=== PATIENT | female | born 1940 | race Caucasian/White ===

== ENCOUNTER 2023-11-11 17:35 | Inpatient (IN) | payer OTHER, SELFPAY ==
[2023-11-11] VITALS (40 sets, daily range): BP systolic 94–230; BP diastolic 55–121; BMI 18.4; BMI 19.5
--- NOTE | 2023-11-11 12:15 | EDRN ---
Addendum entered by Elle Loco RN 11/11/23 16:44:
Patient's stated that the patient had what he calls a 'cerebral event' in May 2022. stated that patient had a 'silent bleed'. stated that the patient has had some cognitive issues as a result. Per patient has memory
problems. stated that the patient has had weakness in her leg and got worse today. stated that they were going to a viewing and he dropped the patient off in front of the [facility]. said the patient had difficulty getting out of
the car and had to hold onto a bench because she could not walk.
Original Note:
Received patient via EMS. Patient unable to provide PMH. Per EMS patient was going into [facility] and was unable to walk and was having increased weakness in her left leg for the past 2 days. Patient denies any numbness/tingling,speech
difficulty,visual changes,dizziness and headache. Patient's at bedside.
[2023-11-11 12:50] LABS: % Basophils 0.5 % (0-2); % Eosinophils 0.6 % (0-6); % Immature Granulocytes 0.5 % (0-0.5); % Lymphocytes 13.8 % (20.5-51.1); % Monocytes 6.8 % (1.7-9.3); % Neutrophils 77.8 % (42.2-75.2); Absolute Basophils 0.1 10^3/uL (0-0.2); Absolute Eosinophils 0.1 10^3/uL (0-0.7); Absolute Immature Granulocytes 0.1 10^3/uL (0-0.05); Absolute Lymphocytes 1.4 10^3/uL (1.2-3.4); Absolute Monocytes 0.7 10^3/uL (0.1-0.6); Absolute Neutrophils 7.7 10^3/uL (1.4-6.5); Hematocrit 39.1 % (37.0-47.0); Hemoglobin 13.5 g/dL (12.0-16.0); Mean Corp Hgb Conc. 34.5 g/dL (33.0-37.0); Mean Corpuscular Hgb 30.8 pg (27.0-31.0); Mean Corpuscular Volume 89.1 fL (81.0-99.0); Mean Platelet Volume 9.7 fL (7.4-10.4); Nucleated Red Blood Cells % 0 %; Platelet Count 268 10^3/uL (130-400); Red Blood Cell Count 4.39 10^6/uL (4.20-5.40); Red Cell Dist. Width 12.3 % (11.5-14.5); White Blood Cell Count 9.9 10^3/uL (4.8-10.8)
[2023-11-11] MEDS: CARDENE 200 IV ×2 (12:56→20:41)
[2023-11-11 12:58] LABS: ALT (SGPT) 19 U/L (0-35); AST (SGOT) 37 U/L (14-36); Albumin 4.9 g/dl (3.5-5.0); Alkaline Phosphatase 82 U/L (38-126); Blood Urea Nitrogen 28 mg/dl (7-17); Calcium 9.8 mg/dl (8.4-10.2); Carbon Dioxide 26 mmol/L (22-30); Chloride 102 mmol/L (98-107); Estimated Creatinine Clearance 46 ml/min; Glucose 104 mg/dl (70-99); Sodium 138 mmol/L (135-145); Total Protein 7.8 g/dl (6.3-8.2); eGFR > 60.00
[2023-11-11 13:21] LABS: INR 1.03; PT 13.3 Sec (11.4-14.6)
--- NOTE | 2023-11-11 13:45 | ED.GENMED ---
History of Present Illness
General
Chief Complaint: Weakness
Source: patient, records and spouse
Exam Limitations: none
Time Seen by Provider: 11/11/23 12:18
Nursing documentation reviewed up to this point in time: agreed with
Travel History
Have you had any contact with someone who has COVID-19?: No
Do you have any symptoms of coronavirus? Fever > 100 degrees, chills, cough, shortness of breath, sore throat, loss of taste or smell, muscle aches, or headache?: No
History of Present Illness
History of Present Illness:
Patient is an 82-year-old female was brought to the emergency department by EMS after being interviewing with her today and was unable to stand due to weakness. Patient denies headaches. Patient denies any recent illnesses or injuries.
Patient denies any falls. Patient denies fever, chills, nausea, vomiting, chest pain, shortness of breath or palpitations. Patient does have some dementia according to her has had a cerebrovascular event in the past.
Past History
Past History
ED Past Medical History: HTN, Hypercholesterolemia and Hypothyroidism
Social History
Tobacco: Non-smoker
Personal:
Review of Systems
Review of Systems
All Other Systems: ROS reviewed and negative except as documented in HPI and ROS
Constitutional: Reports no symptoms
EENT: Reports no symptoms
Respiratory: Reports no symptoms
Cardiac: Reports no symptoms
ABD/GI: Reports no symptoms
: Reports no symptoms
Musculoskeletal: Reports no symptoms
Skin: Reports no symptoms
Neurological: Reports weakness; Denies headache
Hematologic/Lymphatic: Reports no symptoms
Phy Exam
Physical Exam
Physical Exam:
Physical Exam
General: No apparent distress, alert and appropriate, well nourished, well hydrated
HENT: Normocephalic, supple with no lymphadenopathy, no thyromegaly
Eyes: Clear sclera, conjuctiva without injection
Heart: Regular rhythm and rate. No S3, S4. No murmur. No NVD
Lungs: No respiratory distress, no stridor, lung sounds clear and equal bilaterallyender
Abdomen: Soft, nontender, BS good
Neuro: Alert and oriented to person place, CN II - XII intact, left-sided weakness, no cerebellar dysfunction
Skin: no rash
Psychiatric: well kept. interactive and cooperative
Extremities: No edema, cyanosis, tenderness
Scores
NIH Stroke Score
Level of Consciousness: 0 - Alert
LOC Questions: 0-Answers both correctly
LOC Commands: 0-Performs both correctly
Best Horizontal Gaze: 0-Normal
Visual Abraham: 0=Normal, no visual loss
Facial Palsy: 0=Normal, symmetrical
Motor - Right Arm: 0=No drift 10 seconds
Motor - Left Arm: 1=Drift < 10 seconds
Motor - Right Le-No drift 5 seconds
Motor - Left Le-Drift < 5 seconds
Limb Ataxia: 0-Absent
Sensation: 0-Normal
Best Language: 0-No aphasia
Dysarthria: 0-Normal
Extinction and Inattention: 0-No abnormality
Total Score:: 2
Thrombolytic Contraindication
Reasons for NON-Tx with Thrombolytics ABSOLUTE Exclusions: Evidence of intracranial hemorrhage on pre-treatment CT head
Course
Orders/Labs/Results
Orders:
Orders
11/11/23 11:37
EKG [Electrocardiogram (*1)] Urgent
Reason for Study: Fatigue / Weakness
EKG- Treatment ONCE
11/11/23 11:40
CT Head W/o Iv Contrast Urgent
Comment:
Reason For Exam: left leg weakness
11/11/23 12:33
Electrocardiogram (*1) Urgent
Reason for Study: Fatigue / Weakness
CMP [Comprehensive Metabolic Panel] Urgent
Complete Blood Count/With Diff Urgent
11/11/23 12:34
Nicardipine 40 mg/200 ml [Cardene] 40 mg in 200 ml IV NOW
Initial dose in mg/hr, then titrate:: 5
Titrate to keep:: SBP 120 - 140 mmHg
Titrate by mg/hr:: 2.5 mg/hr
Frequency of titrations (minutes):: 5-15 minutes
Maximum dose in mg/hr:: 15
Begin to taper infusion when:: Remained at goal for 2hrs
Taper by mg/hr:: 2.5 mg/hr
Frequency of taper (minutes) if patient maintains goal:: every 15-30 minutes
Taper to off?: Yes
If infusion off & no longer maintaining goal:: Contact Provider
11/11/23 13:03
PTT Urgent
Prothrombin Time Urgent
11/11/23 13:59
Neurosurgery Consult Routine
Consulting Provider: Anirudh Bean
Was physician already notified: Yes
Abnormal Lab Results
11/11/23
12:33
Abs Immat Gran (auto) 0.1 H 10^3/uL
(0-0.05)
Absolute Neuts (auto) 7.7 H 10^3/uL
(1.4-6.5)
Absolute Monos (auto) 0.7 H 10^3/uL
(0.1-0.6)
Neutrophils % 77.8 H %
(42.2-75.2)
Lymphocytes % 13.8 L %
(20.5-51.1)
BUN 28 H mg/dl
(7-17)
Glucose 104 H mg/dl
(70-99)
AST 37 H U/L
(14-36)
11/11/23 12:33
11/11/23 12:33
Vital Signs
Initial and Last Documented VS:
Initial Vital Signs
Temp Pulse Resp BP Pulse Ox
98.5 F 72 17 213/105 98
11/11/23 11:44 11/11/23 11:44 11/11/23 11:44 11/11/23 11:44 11/11/23 11:44
Last Documented Vital Signs
Temp Pulse Resp BP Pulse Ox
98.5 F 89 15 155/102 97
11/11/23 11:44 11/11/23 15:00 11/11/23 15:15 11/11/23 15:15 11/11/23 15:15
*Radiology
Radiology exam reviewed: radiology read reviewed (ICH in the right thalamus)
*Pulse Oximetry
Patient hypoxic: no
*EKG
Interpreted by ED Provider?: Yes
EKG Intrepretation Date: 11/11/23
EKG Intrepretation Time: 13:46
Interpretation: normal
Comparison EKG: no changes
Heart Rate: 77
Rate: normal
Rhythm: sinus
[place]: normal axis
Interval: normal interval
QRS Pattern: normal QRS
Ischemia: non-specific ST changes
*[employer] Interpretation
Rate: normal
Interpretation: normal
Heart Rate: 77
Rhythm: sinus
*Critical Care Note
Total Time (30-74mins, 75-104mins- exclusive of procedures): 45 minutes
Update Note
Update Note:
Discussed with neurosurgery will be admitted to the ICU here on the hospitalist service.
ED Attending Note
-
Portions of this chart may have been created with voice recognition software.� Occasional wrong word or��sound alike� substitutions may have occurred due to the inherent limitations of voice recognition software.
Discharge Plan
Departure
Patient Disposition: Admit
Date of Disposition: 11/11/23
Time of Disposition: 13:45
Admit to: ICU
Admit to doctor: Hospitalist
Presentation/result/management discussed w/ accepting MD/DO: Neurosurgery
Patient with high blood pressure during this ER visit?: Yes
Condition: Critical
Covid-19: Not Applicable
Discharge Problem:
Intracranial hemorrhage
Prescriptions:
No Action
atorvastatin [Lipitor] 20 mg Tablet
20 mg PO QPM
Theragen Tablet
1 tab PO DAILY
ascorbic acid (vitamin C) [Vitamin C] 500 mg Tablet
500 mg PO DAILY
levothyroxine [Synthroid] 50 mcg Tablet
50 mcg PO DAILY
lisinopril 2.5 mg Tablet
2.5 mg PO DAILY
coQ10 (ubiquinol) 100 mg Capsule
100 mg PO DAILY
Referrals:
Mahendra Gaffney PA-C [Family Provider] -
Interventions
Interventions:
*Risk Screen - Suicide Last Done: 11/11/23 11:44
*General Assessment Last Done: 11/11/23 11:44
*Neglect/Abuse Screening Last Done: 11/11/23 11:44
ED- Fall Risk Assessment Last Done: 11/11/23 11:53
*ED COVID-19 Vaccine History Last Done: 11/11/23 12:07
ED- Cardiac Assessment Last Done: 11/11/23 11:53
ED- Neurological Assessment Last Done: 11/11/23 11:53
ED- Pulmonary Assessment Last Done: 11/11/23 11:53
Discharge Date and Time
Print Language: [place]
--- NOTE | 2023-11-11 14:41 | CON.NS ---
Chief Complaint
-
ICH
History of Present Illness
This is an 82-year-old female presented today from [facility]. Her states that he was unable to get her out of the car once they arrived. He states that she was having some potential weakness prior to getting in the car however worsened. CT
head was completed for left-sided weakness upon presentation. This showed a left basal ganglionic hemorrhage with mild intraventricular hemorrhage. Currently she denies any headache. She is mildly confused. States she does have a history of
hypertension controlled with lisinopril. She denies any anticoagulants or antiplatelet use.
Review of Systems
-
10 point review of systems was completed is negative except stated in the HPI
Medication and Allergies
Home Medications
Home Medications
�Medication �Instructions �Recorded
ascorbic acid (vitamin C) 500 mg 500 mg PO DAILY 11/11/23
tablet (Vitamin C)
atorvastatin 20 mg tablet (Lipitor) 20 mg PO QPM 11/11/23
coQ10 (ubiquinol) 100 mg capsule 100 mg PO DAILY 11/11/23
levothyroxine 50 mcg tablet 50 mcg PO DAILY 11/11/23
(Synthroid)
lisinopril 2.5 mg tablet 2.5 mg PO DAILY 11/11/23
therapeutic multivitamin 1 tab PO DAILY 11/11/23
Allergies
Allergies
Allergy/AdvReac Type Severity Reaction Status Date / Time
No Known Allergies Allergy Verified 11/11/23 11:53
Physical Exam
-
Exam:
Awake alert and oriented x 2
Left sided weakness involving the upper and lower extremities with 2-3 out of 5 weakness
Left drift involving the arm and leg
Cranial nerves are grossly intact
No visible facial weakness
Sensory is grossly intact
CAT scan of the head shows 3 cm left thalamic/basal ganglionic hemorrhage. There is a mild amount of interventricular hemorrhage no hydrocephalus.
Problems
-
Problem Status Onset Code
Intracranial hemorrhage I62.9
Assessment / Plan
-
ICH:
1. Repeat CT in 6 hours
2. Goal SBP 100-1 40; continue Cardene
3. No anticoagulants
4. Head of bed 30 degrees
5. Every hour neurochecks
6. Notify neurosurgery of any neurologic changes
7. No acute surgical interventions needed
8. Consult neurology
--- NOTE | 2023-11-11 15:47 | HPS.HSE ---
Family Physician
-
Family Physician: Mahendra Gaffney PA-C
Chief Complaint
-
Stroke
History of Present Illness
82-year-old woman came to ED after she was unable to stand due to weakness. She denies headaches, any recent illnesses or injuries, or any falls. She denies fever, chills, nausea, vomiting, chest pain, shortness of breath or palpitations. Patient
does have some dementia according to her , and has had a cerebrovascular event in the past. Her head CT showed:
a 3 cm acute/subacute parenchymal hemorrhage centered at the anterior aspect of the right thalamus and extending into the internal capsule on the right.
There is associated intraventricular extension with hemorrhage extending into the third and right lateral ventricles.
Moderate cortical atrophy with moderate nonspecific white matter changes as detailed above.
She was evaluated by neurosurgery who recommended the following:
'1. Repeat CT in 6 hours
2. Goal SBP 100-140; continue Cardene
3. No anticoagulants
4. Head of bed 30 degrees
5. Every hour neurochecks
6. Notify neurosurgery of any neurologic changes
7. No acute surgical interventions needed
8. Consult neurology'
At the time of my interview, she was comfortable, mildly confused but not in distress. She did not have obvious focal neuro defects while lying in bed. Gait not tested.
Medical History
Past Medical History
Past Medical History: Reports Other
Additional Past Medical History:
essential HTN,
Hypercholesterolemia
Hypothyroidism
mild dementia
Personal history of colonic polyps
Impaired fasting glucose
Ambulatory dysfunction
Mixed hyperlipidemia
Meningioma
Primary osteoarthritis, unspecified elbow
Mild cognitive impairment
Small vessel disease, cerebrovascular
Past Surgical History: Reports None
Social History
Tobacco: Non-smoker
Alcohol: Daily
Drug: None
Personal:
Living: With Family
Family History
Family History: Not pertinent
Allergies / Home Medications
Allergies reflects when Allergies were last updated in [employer].
Home Medications with original date entered in [employer]
Allergy/Medication List:
Allergies
Allergy/AdvReac Type Severity Reaction Status Date / Time
No Known Allergies Allergy Verified 11/11/23 11:53
Home Medications
ascorbic acid (vitamin C) 500 mg tablet (Vitamin C) 500 mg PO DAILY 11/11/23
atorvastatin 20 mg tablet (Lipitor) 20 mg PO QPM 11/11/23
coQ10 (ubiquinol) 100 mg capsule 100 mg PO DAILY 11/11/23
levothyroxine 50 mcg tablet (Synthroid) 50 mcg PO DAILY 11/11/23
lisinopril 2.5 mg tablet 2.5 mg PO DAILY 11/11/23
therapeutic multivitamin 1 tab PO DAILY 11/11/23
Review of Systems
-
History Source: Patient
A 12 point ROS was completed and negative except as noted: Yes
Physical Exam
Vital Signs
Vital Signs
Temp Pulse Resp BP Pulse Ox
98.5 F 89 15 155/102 97
11/11/23 11:44 11/11/23 15:00 11/11/23 15:15 11/11/23 15:15 11/11/23 15:15
Physical Exam
General: Well Developed, Well Nourished, No Apparent Distress and Appears Chronically Ill
HEENT: NormoCephalic, Moist mucous membranes, No Ptosis, Nose Appears Normal and Ears Appear Normal
Respiratory: Clear
Cardiac: S1/S2 and Murmur
GI: Soft, Non Tender and Non Distended
Musculoskeletal: No Clubbing, No Cyanosis and No Edema
Skin: Warm and Dry; No Rash or Jaundice
Neuro: Awake and Alert
Psych: Calm
Laboratory Results
-
11/11/23 12:33
11/11/23 12:33
Laboratory Results
PT 13.3 Sec (11.4-14.6) 11/11/23 13:03
INR 1.03 11/11/23 13:03
APTT 28.0 Sec (23.4-35.0) 11/11/23 13:03
Total Bilirubin 1.0 mg/dl (0.2-1.3) 11/11/23 12:33
AST 37 U/L (14-36) H 11/11/23 12:33
ALT 19 U/L (0-35) 11/11/23 12:33
Alkaline Phosphatase 82 U/L (38-126) 11/11/23 12:33
Data Reviewed
-
Lab Data: Labs Reviewed by me
Impression/Plan
-
IMPRESSION:
82 woman with stroke. Elevated BP when coming into ED. CT shows:
a 3 cm acute/subacute parenchymal hemorrhage centered at the anterior aspect of the right thalamus and extending into the internal capsule on the right.
There is associated intraventricular extension with hemorrhage extending into the third and right lateral ventricles.
Moderate cortical atrophy with moderate nonspecific white matter changes as detailed above.
PLAN:
1. Hemorrhagic stroke. Patient seen by neurosurgery. Neurosurgery recommends:
'1. Repeat CT in 6 hours
2. Goal SBP 100-140; continue Cardene
3. No anticoagulants
4. Head of bed 30 degrees
5. Every hour neurochecks
6. Notify neurosurgery of any neurologic changes
7. No acute surgical interventions needed
8. Consult neurology'
Will follow recommendations. Admit to ICU.
2. Elevated BP - now controlled with cardene drip.
Continue in ICU as recommended above
3. BUN/Creat > 20, BUN 28 - likely dehydration.
Encourage po fluids
Re-eval in am
4. Heart Murmur - neither she or think she has had one before
Check echo
5. Diet - as tolerated after swallow eval. No speech changes at this time.
Full code
VCD for DVTp
--- NOTE | 2023-11-11 18:57 | EDRN ---
Report given to LILI Vee . Patient taken to room 3360 on monitor with Cardene drip infusing at 5mg/hr. NIHS done with LILI Vee at bedside.
--- NOTE | 2023-11-11 19:05 | CON.INTV ---
Consultation
Consultation Request
Date/Time Consultation Requested: 11-11-23
Date/Time Consultation Performed: 11-11-23
Requesting Provider: Hospitalist vernon
Performing Provider: Dr Abdul
Reason for Consultation: stroke
Medical History
-
Chief Complaint: weakness
History of Present Illness:
Mrs Tona Benson is an 82/W adm 11-10 with sudden onset weakness.
Brought to ER, head CT showed 3 cm L thalamic/basal ganglionic hemorrhage, mild IVH without hydrocephalus. Seen by Neurosx, no acute intervention recommended. Neurology consulted
No presyncopal event, L[place], CP or other symptoms
Seen at ICU, awake, on RA, on nicardipine gtt. Appears calm, denies major complaints
Past Medical History
Past Medical History: Other (see A&P for PMH/PSH)
Social History
Tobacco: Non-smoker
Alcohol: Daily
Drug: None
Personal:
Living: With Family
Family History
Family History: Reviewed & Not Pertinent
Allergies / Home Medications
Allergies
Allergy/AdvReac Type Severity Reaction Status Date / Time
No Known Allergies Allergy Verified 11/11/23 11:53
Home Medications
�Medication �Instructions �Recorded �Confirmed �Last Taken �Type
ascorbic acid (vitamin C) 500 mg 500 mg PO DAILY 11/11/23 11/11/23 Unknown History
tablet (Vitamin C)
atorvastatin 20 mg tablet (Lipitor) 20 mg PO QPM 11/11/23 11/11/23 Unknown History
coQ10 (ubiquinol) 100 mg capsule 100 mg PO DAILY 11/11/23 11/11/23 Unknown History
levothyroxine 50 mcg tablet 50 mcg PO DAILY 11/11/23 11/11/23 11/10/23 History
(Synthroid)
lisinopril 2.5 mg tablet 2.5 mg PO DAILY 11/11/23 11/11/23 11/10/23 History
therapeutic multivitamin 1 tab PO DAILY 11/11/23 11/11/23 Unknown History
Review of Systems
-
History Source: Patient
All other systems: Negative unless noted
Constitutional: Fatigue
Neuro: Weakness
Vitals / Labs / Diagnostic Testing
Vital Signs
Temp Pulse Resp BP Pulse Ox
97.6 F 88 18 136/89 97
11/11/23 18:52 11/11/23 19:02 11/11/23 19:02 11/11/23 19:02 11/11/23 19:02
Lab Data
11/11/23 12:33
11/11/23 12:33
Laboratory Results
11/11/23
13:03
PT 13.3
INR 1.03
APTT 28.0
Diagnostic Testing:
Physical Exam
-
HEENT: Normocephalic, Moist Mucous Membranes and Thrush (n)
Cardiovascular: Regular Rhythm, Murmur (n), Peripheral Edema (n), Calf Tenderness and JVD
Respiratory: Clear and Non-Labored Respirations
GI: Soft, Non Distended and Non Tender
Neurology: Awake, Oriented and No Motor Deficits (but weak)
Skin: Warm
General: Respiratory Distress
Assessment
-
Assessment:
Mrs Tona Benson is an 82/W adm 11-10 with sudden onset weakness. Brought to ER, head CT showed 3 cm L thalamic/basal ganglionic hemorrhage, mild IVH without hydrocephalus. Seen by Neurosx, no acute intervention recommended. Neurology consulted
Impression:
L thalamic/basal ganglionic hemorragic stroke
Conditions SCRIPT MANAGER:
HTN
HLD
Hypothyroidism
Mild dementia
Ambulatory dysfunction
Meningioma
OA
Cerebrovascular small vessel disease
Nonsmoker
Plan:
Admitted to ICU with ICH
O2 protocol
Asp precs
Seen by Neurosurgery
No candidate for acute surgical intervention
Repeat head CT in 6 hrs as rec by Neurosx
BP control, continue nicardipine, goal SBP 100-140
Neurochecks
Neurology consultation
Continue atorvastatin
SCDs
D/w Mr Benson and his daughter at bedside
Critical care time: 35 min
--- NOTE | 2023-11-11 20:15 | PTCARENOTE ---
Pt admitted to ICU. afebrile. AAOx1, forgetful and confused. Slow speech. Pleasant. Pt show with Lt side weakness. no c/o pain. NIH score 6. Shallowing test done and pt passed without any issues. Diet changed to Regular per order. NSR to ST in the
tele monitor. Traces of BLLE edema. Head of bed 30 degrees, q1 neuro checks. Pt remains on Cardene gtt maintaining SBP between 120-140's. Lung sounds are clear in RA, SaO2 94-96%. Q2 turn. Pt has purewick in place. Abd round. Pt send for head CT
scan, Q6. MONE[employer] COUNTER notified. Pt appears comfortable in bed, and family members informed about her condition. Call bernal within reach.
[2023-11-11] MEDS: LIPITOR 20 MG PO (20:21)
[2023-11-12] VITALS (66 sets, daily range): BP systolic 111–160; BP diastolic 60–106; PULSE 98; BMI 19.4
--- NOTE | 2023-11-12 00:11 | PTCARENOTE ---
No changes from previous assessment. Q1 neuro check remain. NIH score is a 6. AAOx1, forgetful and pleasant confused. Q2 turn. HOB > 30 degrees. Pt remains on Cardene gtt at 12.5 mg, maintaining SBP 120-140. Call bernal within reach. Will cont w/ tx
plan.
--- NOTE | 2023-11-12 04:41 | PTCARENOTE ---
No major changes. AAOx1. anxious at times, forgetful and confused. NIH score of 6. Continues to have Lt side weakness. ST to NSR in the tele monitor. Remains on Cardene gtt at 5 mg to maintain SBP goal of 120-140's. Q 2 turn. HOB elevate at > [address] done at 0130. Will cont w/ tx plan.
[2023-11-12 04:46] LABS: Hematocrit 35.5 % (37.0-47.0); Hemoglobin 12.6 g/dL (12.0-16.0); Mean Corp Hgb Conc. 35.5 g/dL (33.0-37.0); Mean Corpuscular Hgb 31.8 pg (27.0-31.0); Mean Corpuscular Volume 89.6 fL (81.0-99.0); Mean Platelet Volume 9.3 fL (7.4-10.4); Platelet Count 263 10^3/uL (130-400); Red Blood Cell Count 3.96 10^6/uL (4.20-5.40); Red Cell Dist. Width 12.3 % (11.5-14.5); White Blood Cell Count 13.6 10^3/uL (4.8-10.8)
[2023-11-12 04:57] LABS: INR 1.07; PT 13.7 Sec (11.4-14.6)
[2023-11-12 05:16] LABS: Blood Urea Nitrogen 23 mg/dl (7-17); Calcium 9.4 mg/dl (8.4-10.2); Carbon Dioxide 25 mmol/L (22-30); Estimated Creatinine Clearance 44 ml/min; Glucose 127 mg/dl (70-99); HDL Cholesterol 94 mg/dl; LDL Cholesterol, Calculated 85 mg/dl; Total Cholesterol 191 mg/dl (50-199); Triglyceride 62 mg/dl (10-149); Very Low Density Lipoprotein 12 mg/dl (0-30); eGFR > 60.00
[2023-11-12 05:21] LABS: Chloride 102 mmol/L (98-107); Potassium 3.6 mmol/L (3.5-5.1); Sodium 135 mmol/L (135-145)
[2023-11-12] MEDS: SYNTHROID 50 MCG PO (05:52)
--- NOTE | 2023-11-12 06:10 | W.PN.HOSP.TC ---
Today's Communication/Plan
-
.
Assessment / Plan
Assessment / Plan
Physical Exam
General: Appears Chronically Ill, no acute distress
HEENT: Normocephalic, Moist mucous membranes, No Ptosis, Nose Appears Normal and Ears Appear Normal
Respiratory: Clear
Cardiac: S1/S2 and Murmur
GI: Soft, Non Tender and Non Distended
Musculoskeletal: No Clubbing, No Cyanosis and No Edema
Skin: Warm and Dry; No Rash or Jaundice
Neuro: Awake and Alert, oriented to place, she followed simple commands, left sided weakness ( upper & lower extremity)
Psych: Calm, no agitation
82 woman with left sided weakness
# Hemorrhagic stroke with left hemiplegia.
CT Showed Acute parenchymal hemorrhage in the region of the right thalamus and garner radiata at the level of the body of the right lateral ventricle, measuring approximately 2.4 x 2.1 x 1.9 cm, no significant midline shift
She is awake, no headache, hemodynamically stable. Maintaining good oxygenation and protecting her airways
on Repeat CT in 6 hours schedule with no changes to size of the bleeding
-Goal SBP 100-140; on Nicardipine gtt
-No anticoagulants. Mild drop in HGB from 13 to 12
-Head of bed 30 degrees
- Neuro-checks and NIH score which seemed unchanged over night
- neurosurgery evaluated the patient, no intervention
- PT/OT/Speech
- MRI studies
Appreciate neurology & neurosurgery input
# Mild dementia, known to have cognitive impairment at baseline
# Primary HTN with HTN emergency
Her BP is better now
Will increase dose of Lisinopril , add PRN hydralazine
# Heart Murmur - neither she or think she has had one before
No chest pain
order echo
#Mixed hyperlipidemia
#Hypothyroidism
Full code
Total time spent to see patient, examine the patient on the floor, review data and lab results, discuss treatment plan with patient, nursing staff around 59 minutes
Anticipated Discharge: > 48 hours
Subjective/Interval History
-
Date of Service: November 12, 2023
Patient denies pain or headache
Night team, no headache, stable BP on Nicardipine gtt
Objective Data
-
Labs:
Laboratory Results
11/12/23
04:37
WBC 13.6 H
Hgb 12.6
Hct 35.5 L
Plt Count 263
PT 13.7
INR 1.07
Sodium 135
Potassium 3.6
Chloride 102
Carbon Dioxide 25
BUN 23 H
Creatinine 0.7
Glucose 127 H
Calcium 9.4
Vital Signs:
Vital Signs
Temp Pulse Resp BP Pulse Ox
99.1 F 87 15 123/70 96
11/12/23 03:24 11/12/23 06:00 11/12/23 06:00 11/12/23 06:00 11/12/23 06:00
I&O
11/10/23 11/11/23 11/12/23
06:59 06:59 06:59
Intake Total 1030.0 / 1030.0
Output Total 1400 / 1400
Balance -370.0 / -370.0
--- NOTE | 2023-11-12 07:01 | W.PN.INTV ---
Today's Communication / Plan
Recommendations
Asp precs
BP control
Speech/PT/OT
Neurology eval
Assessment
-
Assessment:
Mrs Tona Benson is an 82/W adm 11-10 with sudden onset weakness. Brought to ER, head CT showed 3 cm L thalamic/basal ganglionic hemorrhage, mild IVH without hydrocephalus. Seen by Neurosx, no acute intervention recommended. Neurology consulted
Impression:
L thalamic/basal ganglionic hemorrhagic stroke
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
HTN
HLD
Hypothyroidism
Mild dementia
Ambulatory dysfunction
Meningioma
OA
Cerebrovascular small vessel disease
Nonsmoker
Plan:
Admitted to ICU with ICH
O2 protocol
Asp precs
Seen by Neurosurgery
No candidate for acute surgical intervention
Repeat head CT 6 hrs post adm with no significant change
Repeat CT overnight with no change
Off nicardipine, goal SBP 100-140
Resume lisinopril
prn IV hydralazine
Neurochecks
Neurology consultation requested
Speech Therapy, PT/OT evaluations
Continue atorvastatin
Continue oral TRT
SCDs
D/w Mr Benson and his daughter at bedside
Critical care time: 35 min
Subjective Dataa
Subjective Data
Date of Service:
Date of Service: November 12, 2023
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
Subjective:
No major events reported overnight
Off the Cardene drip
Remains grossly nonfocal
Denies major complaints
Respiratory zambrano stable on room air
Pleasant, grateful for care given and ICU
Review of Systems
General: Fever (n), Sweats (n) and Satisfactory Appetite
Cardiopulmonary: Dyspnea (n), Cough (n) and Chest Pain (n)
GI: Abdominal Pain (n), Nausea (n) and Vomiting (n)
Neuro: Headache (n) and Weakness (mild)
Objective Data
Data Reviewed
Vital Signs / I&O / Oxygen:
Vital Signs
Temp Pulse Resp BP Pulse Ox
99.1 F 86 15 118/66 94
11/12/23 03:24 11/12/23 06:15 11/12/23 06:15 11/12/23 06:15 11/12/23 06:15
Intake and Output
11/11/23 11/12/23 11/13/23
06:59 06:59 06:59
Intake Total 1030.0 / 1030.0
Output Total 1750 / 1750
Balance -720.0 / -720.0
SaO2 94
Physical Exam
General: Comfortable
HEENT: Normocephalic and Moist Mucous Membranes
Cardiovascular: Regular Rhythm, Murmur (n) and Peripheral Edema (n)
Respiratory: Clear, Non-Labored Respirations and Stridor (n)
GI: Soft, Non Distended and Non Tender
Neurology: Awake, Oriented and No Motor Deficits
Skin: Warm
Labs/Micro/Reports
Lab Data
11/12/23 04:37
11/12/23 04:37
Laboratory Results
11/11/23 11/12/23
13:03 04:37
PT 13.3 13.7
INR 1.03 1.07
APTT 28.0
--- NOTE | 2023-11-12 07:06 | PTCARENOTE ---
Report given to STONE RN. Pt will be transition to Oral BP meds. Cardene infusion turned off. NIH score remains a 6. Pt will be taken for another Head CT.
--- NOTE | 2023-11-12 09:44 | CM ---
CM following re: discharge planning.
Reviewed pt's chart, met with pt.
Pt is an 82 year old female, admitted with primary dx of Hemorrhagic stroke with left hemiplegia.
Pt reports she lives with in a 2SH, 2 steps to enter, has 3 supportive children. Pt described herself as independent in all areas [employer]. No DME, VN or SNF history.
PT, OT, ST will evaluate the pt to determine a level of care at discharge. Pt is open to any after care services that will be recommended.
PCP: Mahendra Gaffney
Pharmacy: [facility].
D/C plan: will be determined after PT, OT, ST evaluations and recommendations.
CM will follow with discharge plan updates as hospitalization progresses
[2023-11-12] MEDS: ZESTRIL 10 MG PO ×2 (10:28→19:49)
--- NOTE | 2023-11-12 11:36 | CON.NEURO4 ---
Consultation - Neurology 4
-
CONSULTING PHYSICIAN: Candice
REFERRING PHYSICIAN: Gini
DICTATED BY: Candice
DATE/TIME OF REQUEST: 11/11/23 evening
DATE/TIME OF CONSULTATION: 11/12/23 at 1030
Reason for Consultation: ich
History of Present Illness:
82-year-old female who was in her normal state of health and was on her way to a yesterday. When she [facility] she could not get out of the car. Her was at the bedside and provided some history on her behalf. He said
that 5 people had to pull her out of the car due to left-sided weakness. He denies any confusion, speech change or other symptoms that he noticed. She denies any headache. She has some baseline right lower extremity pain that causes some
ambulatory dysfunction but is able to ambulate dependently. She has a history of some possible cognitive impairment as well as cerebral microhemorrhages for which she saw Dr. Dasilva once in our clinic in October 2022. No head trauma prior to these
events. She does not take any antiplatelet or anticoagulation. She does have a history of hypertension and her thinks this has been fairly well-controlled on lisinopril.
Previous MRI brain, 10/20/22:
'There is no acute intracranial process.
Moderate volume loss. Moderate to severe leukoaraiosis as noted on prior CT.
Multiple foci of hemosiderin bilaterally, concerning for cerebral amyloid angiopathy. The differential includes possibility of previous hemorrhagic infarct.
There is an 8 mm left frontal meningioma with dural tail. No other mass or abnormal enhancement in the brain.'
Seen by Dr. Dasilva as an outpatient, 10/24/22, seen once, never followed up:
'Right handed 81 year old woman.�������In Fall at a track meet in 2021 patient hadn't eaten all day and seemed to have change in strength and after that developed changes in mental status. That led to getting MRI of brain.������� There have also
been changes in the legs. When she wakes up as the day goes on she notes problems of fatigue in the legs. Somewhat of a feeling of soreness as though she had exercised. This has been for the past few months. It is located in the thighs in symmetric
and in the the legs and calves. She has not had any changes in bowel or bladder and no severe back pain, no rash, no tremor or fasciculations. She denies any paresthesias. There does seem to be a slowing of walking in the past couple of months, no
falls. She notes the walking difficulty she may have stiffness in the morning, she might have some fear of falling. She has not done any physical therapy.�������She feels like her memory is doing good, no anxiety or depression. notices some
trouble remembering things they had talked about. He sees some short term and medium term memory issues. 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 Her mostly does finances.�������SH: Raised on a farm,
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 Rare alcohol 1 oz with a [place] very rare, no tobacco.�������FH: No
history of dementia.
Previous�Brain MRI reviewed showing severe white matter changes in the hemispheres along with subcortical microhemorrhages. From Dr. Dasilva's note: 'Does not appear at all typical of CADASIL and I highly doubt any type of vasculitis given her age.
Most likely due to aging of deep small blood vessels in the brain leading to ischemic changes and deep microhemorrhages. [facility] is working on vascular health, exercise as tolerated, monitoring for high blood pressure and I did encourage
starting statin medication for her. I think acceptable to hold off aspirin given no overt infarct and presence of microhemorrhages on brain.
Silent micro-hemorrhage of brain�This is most likely due to small vessel disease which can cause both microhemorrhages as well as ischemic changes. The location is not at all typical for amyloid angiopathy which general will effect the cortical
areas and the microhemorrhages seen on brain MRI are exclusively seen in the subcortical areas.'
Past Medical History:cerebral microhemorrhages, left frontal meningioma, ?cognitive impairment, htn, hld, hypothyroidism, ambulatory dysfunction, oa, cerebrovascular , constipation, nephrolithiasis, IBS, adenomatous colon polyps
Surgical History:
kidney stone removal x 2
bilateral eye surgeries
Family History: father with massive stroke at age 83, mother with blood clot at age 82, grandmother with ovarian ca, no family history of dementia
Social History: occ ETOH, no smoking, , retired; has masters in human genetics
Allergies
No Known Allergies Allergy (Verified 11/11/23 11:53)
Home Medications
�Medication �Instructions �Recorded
ascorbic acid (vitamin C) 500 mg 500 mg PO DAILY Supplement 11/11/23
tablet (Vitamin C)
atorvastatin 20 mg tablet (Lipitor) 20 mg PO QPM High Cholesterol 11/11/23
coQ10 (ubiquinol) 100 mg capsule 100 mg PO DAILY Supplement 11/11/23
levothyroxine 50 mcg tablet 50 mcg PO DAILY Thyroid 11/11/23
(Synthroid)
lisinopril 2.5 mg tablet 2.5 mg PO DAILY Blood Pressure 11/11/23
therapeutic multivitamin 1 tab PO DAILY Supplement 11/11/23
Review of Symptoms:
Patient denies any fever, headache, chest pain, shortness of breath, GI or symptoms.
�Per the HPI.�All systems are reviewed negative except above.
Vital Signs
Temp Pulse Resp BP Pulse Ox
98 F 82 14 136/77 89
11/12/23 07:09 11/12/23 10:28 11/12/23 10:15 11/12/23 10:28 11/12/23 09:55
Lab Results
11/12/23 04:37
11/12/23 04:37
PT 13.7 Sec (11.4-14.6) 11/12/23 04:37
INR 1.07 11/12/23 04:37
APTT 28.0 Sec (23.4-35.0) 11/11/23 13:03
Sodium 135 mmol/L (135-145) 11/12/23 04:37
Potassium 3.6 mmol/L (3.5-5.1) 11/12/23 04:37
BUN 23 mg/dl (7-17) H 11/12/23 04:37
Glucose 127 mg/dl (70-99) H 11/12/23 04:37
Calcium 9.4 mg/dl (8.4-10.2) 11/12/23 04:37
LDL Cholesterol, Calc 85 mg/dl 11/12/23 04:37
Physical Exam:
The patient is afebrile, heart sounds S1 and S2 are regular and chest is clear to auscultation bilaterally.
NIH Stroke Scale:
I performed the NIH stroke scale on the patient on 11/12/23 at 1030. The patient scored 7 points on the NIH stroke scale assessment, which were assigned as follows: see attached
Neurologic Examination:
The patient is awake, alert and at times pleasantly confused; unable to state date, year, thought month was November, unable to state her age, knew her location; deferred to to provide majority of history. She is able to follow commands. She had
some expressive aphasia and some difficulty with comprehension-- states this is new but did not seem to notice a change on exam. On cranial nerve assessment, pupils are 3 mm bilateral, round and reactive to light and accommodation. Visual
abrahma are full. Extraocular movements are intact. Facial sensations are intact and bilaterally symmetrical, there is no facial asymmetry. Hearing is intact bilaterally to normal conversation volume. Tongue palate and uvula are midline.
Sternocleidomastoid strengths are full bilaterally. Full strength on R, L side: 3/5-4/5 depending upon effort in LUE; LLE 4/5. Deep tendon reflexes are 1+ bilateral upper and lower extremities and Babinski is absent bilaterally. Sensations of ouch,
temperature and vibration are intact and bilaterally symmetrical. There was no extinction noted on double simultaneous stimulation. Coordination is intact by finger to nose in RUE; deferred in LUE due to degree of weakness. JUAN JOSÉ intact bilaterally.
Neuro Imaging:
Last of 4 HCTs since admission, 11/11 at 6am:
Stable examination. No change in volume or distribution of acute parenchymal hemorrhage in the region of the right thalamus and garner radiata at the level of the body of the right lateral ventricle.
No midline shift. No hydrocephalus.
Impression:
MAREN VALE is a 82 year old F who has presented to the hospital with a spontaneous right thalamic/BG hemorrhage with mild amount of intraventricular hemorrhage. Head CTs serially have been stable.
Recommendations:
1. On Cardene; SBP goal 100-140 per nsx
2. MRI brain w/wo contrast when able
3. repeat HCT stat for any change in exam
4. continue frequent neurochecks/ICU level care
5. Scheduled repeat HCTs per neurosurgery
6. Not on an anticoagulation, antiplatelets
7. HOB 30 degrees
8. neurosurgery following
Will c/t follow.
Critical care time 65 mins
Discussed patient care with: patient's
NIH Stroke Scale
NIH Stroke Score
Date of Subsequent NIH Scale: 11/12/23
Time of Subsequent NIH Scale: 10:30
Level of Consciousness: 0 - Alert
LOC Questions: 2-Neither correct
LOC Commands: 0-Performs both correctly
Best Horizontal Gaze: 0-Normal
Visual Abraham: 0=Normal, no visual loss
Facial Palsy: 0=Normal, symmetrical
Motor - Right Arm: 0=No drift 10 seconds
Motor - Left Arm: 2=Partial vs. gravity
Motor - Right Le-No drift 5 seconds
Motor - Left Le-Partial vs. gravity
Limb Ataxia: 0-Absent
Sensation: 0-Normal
Best Language: 1-Mild aphasia
Dysarthria: 0-Normal
Extinction and Inattention: 0-No abnormality
Total Score:: 7
--- NOTE | 2023-11-12 11:46 | W.PN.UPDATE ---
Update Note
Progress Note Update
CTs reviewed
her ICH and IVH remain stable
Neurosurgery to sign off
reconsult prn
--- NOTE | 2023-11-12 11:58 | PTCARENOTE ---
pt awake and confused to time and place, NIHSS done at bedside with previous RN score of 4, pt NSR on monitor , off Cardene gtt at 0700 , BP 126/70 , on room air with 02 sat of 95% , pt has poor appetite, family here and updated on current plan of
care and condition , pt states his at baseline is mildly confused with short term memory , he stated she drives and is able to care for herself , pt daughter states the pt was seeing a neurologist for ambulatory dysfunction she was
shuffling with her gate at times but was able to ambulate without difficulty
--- NOTE | 2023-11-12 12:58 | PTCARENOTE ---
NIHSS 5, pt to have a MRI later today
--- NOTE | 2023-11-12 15:02 | PTOTSP ---
SPEECH THERAPY SWALLOW EVALUATION:
Clinical signs of oropharyngeal dysphagia, likely acutely related to acute CVA with possible chronic component related to predisposing dysphagia risk factors of dementia and prior CVA. Patient is at risk for aspiration and related complications
given significant confusion. WBC currently elevated. No CXR available. Breathing comfortably on room air. Recommend continue Regular texture diet, thin liquids. Medications whole with liquid, one at a time. Aspiration precautions includin%
supervision with meals; Slow rate; Small sips/bites; Only feed when awake/alert; Upright positioning. D/C oral diet if signs of aspiration or a decline in mental or respiratory status. Speech therapy to follow, assess diet tolerance and modify as
appropriate, provide continued education regarding aspiration risks and precautions, monitor CXR and labs, determine indication for instrumental assessment of swallowing if warranted, and provide diagnostic swallow therapy as appropriate.
Comprehensive Speech/language/cognitive communication evaluation to follow.
RECOMMEND:
1) Regular texture diet, thin liquids
2) Medications whole with liquid, one at a time
3) Aspiration precautions includin% supervision with meals; Slow rate; Small sips/bites; Only feed when awake/alert; Upright positioning. D/C oral diet if signs of aspiration or a decline in mental or respiratory status
4) Speech therapy to follow, assess diet tolerance and modify as appropriate, provide continued education regarding aspiration risks and precautions, monitor CXR and labs, determine indication for instrumental assessment of swallowing if warranted,
and provide diagnostic swallow therapy as appropriate. Comprehensive Speech/language/cognitive communication evaluation to follow.
--- NOTE | 2023-11-12 15:19 | PTCARENOTE ---
pt BP up to 154/81 , lisinopril is now BID
[2023-11-12] MEDS: TYLENOL 650 MG PO (16:28)
[2023-11-12] MEDS: LIPITOR 20 MG PO (17:55)
[2023-11-12] MEDS: APRESOLINE 10 MG IV (21:16)
--- NOTE | 2023-11-12 21:18 | PTCARENOTE ---
Received pt resting in bed with at bedside. Oriented only to self, thinks it is year 2012 and that she is at her house. NIH handoff completed = 4. Q4 hr neuro checks ongoing. SR on tele HR 80s-90s. BP elevated 150s-160s systolic, scheduled
lisinopril given and waited to see effect but remained elevated so hydralazine PRN given. Will monitor. Afebrile. On RA, pulseox 97%. Lungs CTA. + bowel sounds, regular diet. Purewick in place voiding clear yellow. New INT placed #22 L FA. Turning
q2.
[2023-11-12] MEDS: TRANDATE 10 MG IV (23:37)
[2023-11-13] VITALS (28 sets, daily range): BP systolic 120–165; BP diastolic 60–126; PULSE 85–87; BMI 19.4
[2023-11-13] MEDS: APRESOLINE 10 MG IV ×2 (01:43→21:53)
--- NOTE | 2023-11-13 01:49 | PTCARENOTE ---
SPARE PARTS CLERK aware of SBPs >140. PRN hydralazine and labetalol given- see MAR. Monitoring for need for cardene gtt. Pt. resting.
[2023-11-13 04:09] LABS: Hemoglobin 13.2 g/dL (12.0-16.0); Mean Corp Hgb Conc. 34.7 g/dL (33.0-37.0); Mean Corpuscular Hgb 30.8 pg (27.0-31.0); Mean Corpuscular Volume 88.8 fL (81.0-99.0); Mean Platelet Volume 9.4 fL (7.4-10.4); Platelet Count 314 10^3/uL (130-400); Red Blood Cell Count 4.28 10^6/uL (4.20-5.40); Red Cell Dist. Width 12.7 % (11.5-14.5); White Blood Cell Count 12.3 10^3/uL (4.8-10.8)
[2023-11-13 04:35] LABS: Blood Urea Nitrogen 25 mg/dl (7-17); Calcium 9.5 mg/dl (8.4-10.2); Carbon Dioxide 26 mmol/L (22-30); Chloride 106 mmol/L (98-107); Estimated Creatinine Clearance 44 ml/min; Glucose 120 mg/dl (70-99); Potassium 3.8 mmol/L (3.5-5.1); Sodium 139 mmol/L (135-145); eGFR > 60.00
--- NOTE | 2023-11-13 06:09 | PTCARENOTE ---
Pt slept overnight without issue. When awoken to perform neuro exam, pt. took a few minutes to fully wake up and be able to participate to the extent she was before. When awake, neuro exam unchanged. RN CHEMICAL DEPENDENCY at bedside also. BP improved this AM.
[2023-11-13] MEDS: SYNTHROID 50 MCG PO (06:13)
--- NOTE | 2023-11-13 08:00 | W.PN.INTV ---
Today's Communication / Plan
Recommendations
Asp precs
BP control
Speech/PT/OT
Neurology following
Patient's neurological imaging is stable as evidenced by MRI today. Patient stable for downgrade out of ICU to telemetry. Bonding And Composite Fabricator/pulmonary service will now sign off. Please reconsult if there are any additional questions/concerns, or if
patient's respiratory status deteriorates.
Assessment
-
Assessment:
Mrs Tona Benson is an 82/W adm 11-10 with sudden onset weakness. Brought to ER, head CT showed 3 cm L thalamic/basal ganglionic hemorrhage, mild IVH without hydrocephalus. Seen by Neurosx, no acute intervention recommended. Neurology consulted
Impression:
R-sided thalamic/basal ganglionic hemorrhagic stroke
Large right-sided basal ganglia IPH with IVH
Chronic hypertensive microangiopathy
Leukocytosis
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
HTN
HLD
Hypothyroidism
Mild dementia
Ambulatory dysfunction
Meningioma
OA
Cerebrovascular small vessel disease
Nonsmoker
Plan:
Admitted to ICU with ICH
O2 protocol --> maintain SpO2 >90-94%
Asp precs
Seen by Neurosurgery
No candidate for acute surgical intervention --> neurosurgery signed off on 11/12/[address] 6 hrs post adm with no significant change
Repeat CT with no change
Off nicardipine, goal SBP 100-140 --> now off
Resume lisinopril (currently on 10mg PO BID) with goal BG<140/90 mmHg
prn IV hydralazine
Neurochecks
Neurology on board --> recs appreciated
Speech Therapy, PT/OT evaluations --> Pt will need SNF vs [facility]
f/u TTE
Continue atorvastatin
Continue LT4
SCDs
D/w Mr Benson and his daughter at bedside
Patient's neurological imaging is stable as evidenced by MRI today. Patient stable for downgrade out of ICU to telemetry. This was confirmed with neurology. It was discussed with primary hospitalist, Dr. Vasquez. All parties are on board.
Bonding And Composite Fabricator/pulmonary service will now sign off. Thank you for allowing us to be involved in the care of this patient. Please reconsult if there are any additional questions/concerns, or if patient's respiratory status deteriorates.
Total time spent today was 55 minutes for this encounter. Time includes reviewing laboratory test/imaging results, reviewing pertinent medical records, obtaining and reviewing medical history, performing an appropriate exam, ordering medications,
tests and procedures. Time also includes documentation of this encounter, coordinating patient care and communicating with other healthcare professionals. Total time does not include separately billed tests performed on this date of service.
Data:
MRI Brain 11-13-2023:
1. LARGE EARLY SUBACUTE (3-7 days old) INTRAPARENCHYMAL HEMORRHAGE in the right thalamus, posterior limb of the right internal capsule, and periventricular right frontal lobe extending into the right lateral ventricle with intraventricular
hemorrhage layering in the occipital horn of the right lateral ventricle which appears unchanged.
2. CHRONIC HYPERTENSIVE MICROANGIOPATHY with multiple chronic intraparenchymal microhemorrhages in the thalami, right caudate nucleus, brainstem, and cerebellum.
3. Severe white matter leukoaraiosis in the frontal and parietal lobes.
4. Mild diffuse cerebral and cerebellar volume loss.
5. 8.1 mm meningioma lateral to the left frontal lobe.
6. Moderate-sized central disc herniation at C4/C5 causing mild spinal cord compression and central canal stenosis.
Subjective Dataa
Subjective Data
Date of Service:
Date of Service: November 13, 2023
Chief Complaint: Bonding And Composite Fabricator Follow Up
Subjective:
Pt seen this AM. VS this AM with HR 68, BP 134/74, RR 15, on room air SpO2 97%. and daughter at bedside � all questions were answered. Patient has weakness in her left leg as well as her core. No acute events reported from overnight.
Patient denies headache, chest pain, shortness breath, fevers or chills.
Review of Systems
General: Other (Negative unless mentioned above)
Objective Data
Data Reviewed
Vital Signs / I&O / Oxygen:
Vital Signs
Temp Pulse Resp BP Pulse Ox
99.1 F 69 14 134/74 97
11/13/23 07:19 11/13/23 09:15 11/13/23 09:15 11/13/23 09:00 11/13/23 08:00
Intake and Output
11/12/23 11/13/23 11/14/23
06:59 06:59 06:59
Intake Total 1030.0 / 1042.5 1482.5 / 1482.5
Output Total 1750 / 1750 1700 / 1700
Balance -720.0 / -707.5 -217.5 / -217.5
SaO2 97
Physical Exam
General: Comfortable
HEENT: Normocephalic, Anicteric and Moist Mucous Membranes
Cardiovascular: S1-S2, Murmur (n) and Peripheral Edema (n)
Respiratory: Clear, Wheeze (negative), Crackles (negative), Rhonchi (negative), Non-Labored Respirations and Stridor (n)
GI: Soft, Non Distended and Non Tender
Neurology: Awake, Alert, Tremors (negative) and Other (Normal office cashier strength bilaterally; weak left lower extremity; right foot dorsi/plantarflexion is 4/5; normal cranial nerve function (II - XII) with no deficits appreciated)
Skin: Warm and Dry
Labs/Micro/Reports
Lab Data
11/13/23 03:40
11/13/23 03:40
[2023-11-13] MEDS: ZESTRIL 10 MG PO ×2 (08:02→19:59)
--- NOTE | 2023-11-13 08:26 | PTCARENOTE ---
Received pt awake and alert.Speech is mostly appropriate.Pt initially unsure of place.Unable to name date or her age.Is forgetful of diagnosis and plan of care.No facial droop,aphasia or dysarthria noted.Left upper and lower extremity weak with
increased tone noted.Assisted oob with max assist.Denies pain.SR noted.POX 97% on RA.Lungs CTA.No difficulties swallowing noted.No BM.Incontinent yellow urine via Purewick.Pt for MRI and echocardiogram as per MD order.Plan of care discussed with pt.
--- NOTE | 2023-11-13 08:29 | W.PN.HOSP.TC ---
Today's Communication/Plan
-
see bold
Assessment / Plan
Assessment / Plan
HPI: 82 woman with left sided weakness
# Hemorrhagic stroke with left hemiplegia.
CT Showed Acute parenchymal hemorrhage in the region of the right thalamus and garner radiata at the level of the body of the right lateral ventricle, measuring approximately 2.4 x 2.1 x 1.9 cm, no significant midline shift
Appreciate neurology and neurosurgery input, no need for surgical intervention, Neurosurg signed off
Status post Cardene drip with goal SBP 100�140
Repeat MRI 11/12 shows stability of hemorrhagic stroke
PT/OT - rec acute rehab
SPL recommends regular diet with thin liquids, aspiration precautions
Hold antiplatelets/anticoagulation
Okay for heparin for DVT prophylaxis 11/10 3 AM
Stable for tele
# Mild dementia, known to have cognitive impairment at baseline
# Primary HTN with HTN emergency
Blood pressure 134/74 with increased lisinopril
Continue as needed hydralazine
# Heart Murmur - neither she or think she has had one before
Echo requested
#Mixed hyperlipidemia
Continue statin
#Hypothyroidism
Continue Synthroid
DVT ppx - SCDs due to ICH, start subcu heparin 11/10 3 AM
Full code
Total time spent to see the patient on the floor, examine the patient, review data and lab results, discuss treatment plan with patient, nursing staff around 51 minutes.
Physical Exam
General: Appears Chronically Ill, no acute distress
HEENT: Normocephalic, Moist mucous membranes, No Ptosis, Nose Appears Normal and Ears Appear Normal
Respiratory: Clear
Cardiac: S1/S2 and Murmur
GI: Soft, Non Tender and Non Distended
Musculoskeletal: No Clubbing, No Cyanosis and No Edema
Skin: Warm and Dry; No Rash or Jaundice
Neuro: Awake and Alert, oriented to place, she followed simple commands, left sided weakness ( upper & lower extremity) - improved from prior
Psych: Calm, no agitation
Anticipated Discharge: 24 - 48 hours
Subjective/Interval History
-
Date of Service: November 13, 2023
Patient's left-sided weakness continues to improve. No fever, no vomiting.
Objective Data
-
Labs:
Laboratory Results
11/13/23
03:40
WBC 12.3 H
Hgb 13.2
Hct 38.0
Plt Count 314
Sodium 139
Potassium 3.8
Chloride 106
Carbon Dioxide 26
BUN 25 H
Creatinine 0.7
Glucose 120 H
Calcium 9.5
Vital Signs:
Vital Signs
Temp Pulse Resp BP Pulse Ox
99.1 F 60 19 130/80 97
11/13/23 07:19 11/13/23 08:15 11/13/23 08:15 11/13/23 08:00 11/13/23 08:00
I&O
11/12/23 11/13/23 11/14/23
06:59 06:59 06:59
Intake Total 1030.0 / 1042.5 1482.5 / 1482.5
Output Total 1750 / 1750 1700 / 1700
Balance -720.0 / -707.5 -217.5 / -217.5
--- NOTE | 2023-11-13 08:35 | W.PN.NEURO.1 ---
Today's Communication / Plan
-
-Systolic blood pressure goal less than 140
-Check MRI brain with and without contrast
-Minimize sedating medications
-Speech physical Occupational Therapy evaluations
-Hold any antiplatelet or anticoagulation
-Will be acceptable for heparin DVT prophylaxis AM 11/13
-Goal normal sodium
-Aspiration precautions
Will follow
Neuro Assessment/Plan
Assessment
82-year-old woman with a previous history of cerebral microhemorrhage, meningioma, hypertension, nephrolithiasis presented to hospital with left-sided weakness and found to have right-sided thalamic intracranial hemorrhage with intraventricular
extension.
Stable CT head noncontrast appearance of hemorrhage since admission with no neurologic deterioration
Previous brain MRI did not show cortical microhemorrhages but rather showed deep subcortical multiple microhemorrhages, I had seen her in the office previously and felt that this was due to cerebrovascular small vessel disease and unlikely to be
amyloid angiopathy location of the brain microhemorrhages, additionally shows extensive small vessel ischemic disease on FLAIR/T2 modalities of MRI brain she had not been on any antithrombotic on admission
Subjective/Objective
Subjective Data
Date of Service: November 13, 2023
No acute events overnight, denies headache, discussed pursuing brain MRI for workup of stroke
Objective Data
Vital Signs
Temp Pulse Resp BP Pulse Ox
99.1 F 60 19 130/80 97
11/13/23 07:19 11/13/23 08:15 11/13/23 08:15 11/13/23 08:00 11/13/23 08:00
Lab Results
11/13/23 03:40
11/13/23 03:40
PT 13.7 Sec (11.4-14.6) 11/12/23 04:37
INR 1.07 11/12/23 04:37
APTT 28.0 Sec (23.4-35.0) 11/11/23 13:03
Sodium 139 mmol/L (135-145) 11/13/23 03:40
Potassium 3.8 mmol/L (3.5-5.1) 11/13/23 03:40
BUN 25 mg/dl (7-17) H 11/13/23 03:40
Glucose 120 mg/dl (70-99) H 11/13/23 03:40
Calcium 9.5 mg/dl (8.4-10.2) 11/13/23 03:40
LDL Cholesterol, Calc 85 mg/dl 11/12/23 04:37
Patient Allergies
No Known Allergies Allergy (Verified 11/11/23 11:53)
LDL Level: >70, statin ordered
Review of Systems
-
History Source: Patient
All other systems: Reviewed and negative
Constitutional: No Symptoms
EENT: No Symptoms Reported
Respiratory: No Symptoms
Cardiac: No Symptoms
Abdomen/GI: No Symptoms
Genitourinary: No Symptoms
Musculoskeletal: No Symptoms
Skin: No Symptoms
Neuro: Weakness; Negative Headache or Speech Problem
Endocrine: No Symptoms
Hematologic / Lymphatic: No Symptoms
Allergy / Immunology: No Symptoms
Physical Exam
-
General: Comfortable
Eyes: No Ptosis
HEENT: Normocephalic
Neck: No Bruits Bilaterally
Respiratory: Clear to Auscultation
Cardiac: Regular Rhythm
GI: Normal Bowel Sounds
Skin: Unremarkable
Extremities: No Clubbing
Psych: Intact Judgement/Insight; Negative Agitated
Extended Neurological Exam
Mood & Affect: Mood Unremarkable and Affect Unremarkable
Attention Span & Concentration: Awake, Alert, Interactive and Other (Conversational, knows in hospital with stroke showing insight)
Memory: Unremarkable
Tremor: Hand Tremor Absent
Involuntary Movement: None
Cranial Nerve II: Left Eye: Pupillary Reactivity Unremarkable and Pupillary Size Unremarkable
Cranial Nerve II: Right Eye: Pupillary Reactivity Unremarkable and Pupillary Size Unremarkable
Cranial Nerves III, IV, : Extraocular Movement: Extraocular Movement Full in all Directions
Muscle Strength, Overall: Other (Left sided weakness 4/5 shoulder abduction and hip flexion)
Pronator Drift: Drift in Left Upper Extremity
Data Reviewed
-
CT Head: Report Reviewed and Image Reviewed
MRI Head: Ordered and Pending
--- NOTE | 2023-11-13 13:40 | PTCARENOTE ---
Pt assessed.No change in assessment noted.MRI and echocardiogram completed as ordered.Collaborated with PT.Pt's at bedside.Plan of care discussed.
--- NOTE | 2023-11-13 14:17 | CM ---
CM reviewed chart- Pt remains in IMCU and ADC >48 hours
PT/OT evals pending
Speech also following
CM will remains available for dc planning
Discharge Disposition- TBD
--- NOTE | 2023-11-13 16:07 | PTCARENOTE ---
Pt assessed.No change in assessment noted.Pt has not voided.Bladder scanned for 91 ml.Pt for transfer to tele as per MD order.
--- NOTE | 2023-11-13 18:06 | PTCARENOTE ---
Reprt given to 4 Acute RN.
[2023-11-13] MEDS: LIPITOR 20 MG PO (18:23)
[2023-11-14] VITALS (8 sets, daily range): BP systolic 111–153; BP diastolic 65–90; PULSE 87–92; O2SAT 94
[2023-11-14] MEDS: SYNTHROID 50 MCG PO (05:12)
[2023-11-14 06:52] LABS: % Basophils 0.3 % (0-2); % Eosinophils 0.2 % (0-6); % Immature Granulocytes 0.4 % (0-0.5); % Lymphocytes 13.1 % (20.5-51.1); % Monocytes 10.6 % (1.7-9.3); % Neutrophils 75.4 % (42.2-75.2); Absolute Lymphocytes 1.4 10^3/uL (1.2-3.4); Absolute Monocytes 1.2 10^3/uL (0.1-0.6); Absolute Neutrophils 8.2 10^3/uL (1.4-6.5); Hematocrit 38.1 % (37.0-47.0); Hemoglobin 12.9 g/dL (12.0-16.0); Mean Corp Hgb Conc. 33.9 g/dL (33.0-37.0); Mean Corpuscular Hgb 31.2 pg (27.0-31.0); Mean Platelet Volume 9.7 fL (7.4-10.4); Nucleated Red Blood Cells % 0 %; Platelet Count 267 10^3/uL (130-400); Red Blood Cell Count 4.14 10^6/uL (4.20-5.40); Red Cell Dist. Width 12.9 % (11.5-14.5); White Blood Cell Count 10.8 10^3/uL (4.8-10.8)
[2023-11-14 07:21] LABS: ALT (SGPT) 32 U/L (0-35); AST (SGOT) 68 U/L (14-36); Alkaline Phosphatase 62 U/L (38-126); Blood Urea Nitrogen 29 mg/dl (7-17); Carbon Dioxide 28 mmol/L (22-30); Chloride 103 mmol/L (98-107); Estimated Creatinine Clearance 44 ml/min; Glucose 101 mg/dl (70-99); Magnesium 2.2 mg/dl (1.6-2.3); Phosphorus 4.4 mg/dl (2.5-4.5); Potassium 3.9 mmol/L (3.5-5.1); Sodium 134 mmol/L (135-145); Total Protein 6.5 g/dl (6.3-8.2); eGFR > 60.00
--- NOTE | 2023-11-14 07:58 | W.PN.NEURO.1 ---
Addendum entered and electronically signed by Baldo Dasilva MD 11/14/23 14:23:
Vasogenic edema noted on brain MRI that surrounds the area area of intracranial hemorrhage in the left thalamus is a valid diagnosis, this edema was present on admission and is a consequence of the injury to the brain from the intracranial
hemorrhage. It is not related to underlying neoplasm.
Addendum entered and electronically signed by Baldo Dasilva MD 11/14/23 11:40:
I saw and evaluated the patient I reviewed the note by Delicia Smyth agree with the findings the following comments:
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 No
acute events, patient has no complaints at this time.
Neurologic examination unchanged, wide-awake and conversational with mild confusion, minimal dysarthria, left arm and leg weakness 4/5.
Assessment: Significant intracranial hemorrhage with intraventricular extension. Most likely due to cerebral small vessel disease given all of the microhemorrhages observed on the 2 most recent brain MRIs are all within the subcortical region
making amyloid angiopathy very unlikely.
Recommendations
-Discussed that unfortunately intracranial hemorrhage does have a poor long-term prognosis ror recurrence and mortality
-Systolic blood pressure goal aim for less than 160
-Continue statin
-Acceptable for heparin DVT prophylaxis at this point
-Avoid NSAID and any antiplatelets or antithrombotics
-PT/OT and PMR evaluations
-Neurology follow up 4-6 weeks after discharge
Will sign off call with questions and concerns
Original Note:
Documented by User: Delicia Ralph NP 11/14/23 11:25
Today's Communication / Plan
-
.
Neuro Assessment/Plan
Assessment
82-year-old woman with a previous history of cerebral microhemorrhage, meningioma, hypertension, nephrolithiasis presented to hospital with left-sided weakness and found to have right-sided thalamic intracranial hemorrhage with intraventricular
extension.
Stable CT head noncontrast appearance of hemorrhage since admission with no neurologic deterioration
Previous brain MRI did not show cortical microhemorrhages but rather showed deep subcortical multiple microhemorrhages, Dr. Dasilva had seen her in the office previously and felt that this was due to cerebrovascular small vessel disease and unlikely
to be amyloid angiopathy location of the brain microhemorrhages, additionally shows extensive small vessel ischemic disease on FLAIR/T2 modalities of MRI brain she had not been on any antithrombotic on admission
Plan
-Hold any antiplatelet or anticoagulation. Acceptable for heparin DVT prophylaxis today AM 11/13.
-Systolic blood pressure goal less than 140
-Minimize sedating medications
-PT/OT/ST evaluations.
-Goal normal sodium.
-Aspiration precautions.
-LDL goal <70. LDL is 85. Continue atorvastatin 20mg daily.
-Goal normoglycemia, hbA1c is pending.
-NIHSS and neurological checks per unit guidelines, patient provided with a stroke education packet.
-Patient needs follow-up with Neurology as an outpatient, may see the [facility] and Dr. Dasilva.
Subjective/Objective
Subjective Data
Date of Service: November 14, 2023
No acute events overnight. Patient denies any headache, dizziness, vision changes, speech/swallow difficulty, nausea, numbness. She reports ongoing LUE and BLE weakness.
Objective Data
Vital Signs
Temp Pulse Resp BP Pulse Ox
98.3 F 88 18 133/86 97
11/14/23 03:39 11/14/23 03:39 11/14/23 03:39 11/14/23 03:39 11/14/23 03:39
Lab Results
11/14/23 06:05
11/14/23 06:05
PT 13.7 Sec (11.4-14.6) 11/12/23 04:37
INR 1.07 11/12/23 04:37
APTT 28.0 Sec (23.4-35.0) 11/11/23 13:03
Sodium 134 mmol/L (135-145) L 11/14/23 06:05
Potassium 3.9 mmol/L (3.5-5.1) 11/14/23 06:05
BUN 29 mg/dl (7-17) H 11/14/23 06:05
Glucose 101 mg/dl (70-99) H 11/14/23 06:05
Calcium 9.0 mg/dl (8.4-10.2) 11/14/23 06:05
Phosphorus 4.4 mg/dl (2.5-4.5) 11/14/23 06:05
LDL Cholesterol, Calc 85 mg/dl 11/12/23 04:37
Patient Allergies
No Known Allergies Allergy (Verified 11/11/23 11:53)
LDL Level: >70, statin ordered
Review of Systems
-
History Source: Patient
EENT: Negative Blurry Vision, Decreased Vision or Swallowing Difficulty
Respiratory: Negative Cough or Trouble Breathing
Cardiac: Negative Chest Pain or Palpitations
Abdomen/GI: Negative Nausea
Neuro: Weakness and Ataxia; Negative Dizzy, Headache, Numbness or Speech Problem
Physical Exam
-
General: No Apparent Distress
Eyes: No Ptosis and PERRLA
HEENT: Normocephalic and Atraumatic
Neck: Full Range of Motion
Respiratory: No Dyspnea
GI: Non-distended
Extremities: No Clubbing, No Cyanosis and No Edema
Psych: Confused
Extended Neurological Exam
Mood & Affect: Mood Unremarkable and Affect Unremarkable
Attention Span & Concentration: Awake, Alert and Interactive
Memory: Reduced (Oriented to name and place, not age, month, year, or situation)
Tremor: Hand Tremor Absent and Head Tremor Absent
Involuntary Movement: None
Speech: Quality Unremarkable, Quantity Unremarkable and Rate of Production Unremarkable
Cranial Nerve II: Left Eye: Pupillary Reactivity Unremarkable, Pupillary Size Unremarkable and Visual Abraham Intact
Cranial Nerve II: Right Eye: Pupillary Reactivity Unremarkable, Pupillary Size Unremarkable and Visual Abraham Intact
Cranial Nerves III, IV, : Extraocular Movement: Extraocular Movement Full in all Directions
Cranial Nerve V: Facial Sensation: Intact to Light Touch
Cranial Nerve VII: Facial Symmetry: Normal Facial Symmetry
Cranial Nerve VIII: Hearing: Unremarkable Hearing to Normal Conversational Volume
Cranial Nerves IX, X: Palate Movement: Palate Elevation Symmetric
Cranial Nerve XI: Shoulder Shrug: Unremarkable
Cranial Nerve XII: Tongue Protusion: Midline
Muscle Strength, Overall: Reduced on Left (LUE 4/5) and Other (BLE 3/5)
Pronator Drift: Drift in Left Upper Extremity, Drift in Left Lower Extremity and Drift in Right Lower Extremity
Cold Sensation: Unremarkable
Vibration Sensation: Unremarkable
Touch Sensation: Double Simultaneous Stimulation Unremarkable
Coordination: JUAN JOSÉ Satellites around Left
Babinski Sign: Absent Bilaterally
Modified Bowman Score (MRS)
-
Modified Bowman Scale (mRS): Moderately severe disability. Unable to attend to bodily needs/walk.
Score: 4
Data Reviewed
-
CT Head: Report Reviewed and Image Reviewed
MRI Head: Report Reviewed and Image Reviewed
Echocardiogram: Report Reviewed
Labs: Report Reviewed
Lipid Profile: Report Reviewed
HgbA1C: Report Reviewed
Reviewed with: Physician and Patient
Medications
-
Active Medications
Generic Name Dose Route Start Last Admin
Trade Name Freq PRN Reason Stop Dose Admin
Acetaminophen 650 mg 11/11/23 18:34
Acetaminophen 650 Mg Rectal Suppository RECTAL 12/09/23 18:33
Q4HPRN PRN
LAGUERRE, mild pain, or temp >100.4F
Acetaminophen 650 mg 11/11/23 18:34 11/12/23 16:28
Acetaminophen 325 Mg Tablet PO 12/09/23 18:33 650 mg
Q4HPRN PRN Administration
LAGUERRE, mild pain, or temp >100.4F
Atorvastatin Calcium 20 mg 11/11/23 18:34 11/13/23 18:23
Atorvastatin (Lipitor) 20 Mg Tablet PO 12/09/23 18:33 20 mg
QPM LOLY Administration
Heparin Sodium 5,000 units 11/14/23 08:00
Heparin 5,000 Units/Ml 1 Ml Vial SC 12/12/23 07:59
Q12 LOLY
Hydralazine HCl 10 mg 11/12/23 21:12 11/13/23 21:53
Hydralazine 20 Mg/Ml Vial IV 12/10/23 06:28 10 mg
Q4HPRN PRN Administration
SBP>140
Levothyroxine Sodium 50 mcg 11/12/23 06:00 11/14/23 05:12
Levothyroxine 50 Mcg Tablet PO 12/10/23 05:59 50 mcg
DAILY@0600 LOLY Administration
Lisinopril 10 mg 11/12/23 20:00 11/13/23 19:59
Lisinopril 10 Mg Tablet PO 12/10/23 19:59 10 mg
BID LOLY Administration
Ondansetron HCl 4 mg 11/13/23 16:06
Ondansetron 4 Mg/2 Ml Vial IV 12/11/23 16:05
Q6HPRN PRN
NAUSEA/VOMITING
Sodium Chloride 0 flush 11/11/23 19:00
Sodium Chloride 0.9% (Flush) Syringe IV 12/09/23 18:59
PER PROTOCOL LOLY
Home Medications
�Medication �Instructions �Recorded
ascorbic acid (vitamin C) 500 mg 500 mg PO DAILY Supplement 11/11/23
tablet (Vitamin C)
atorvastatin 20 mg tablet (Lipitor) 20 mg PO QPM High Cholesterol 11/11/23
coQ10 (ubiquinol) 100 mg capsule 100 mg PO DAILY Supplement 11/11/23
levothyroxine 50 mcg tablet 50 mcg PO DAILY Thyroid 11/11/23
(Synthroid)
lisinopril 2.5 mg tablet 2.5 mg PO DAILY Blood Pressure 11/11/23
therapeutic multivitamin 1 tab PO DAILY Supplement 11/11/23
NIH Stroke Score
Subsequent NIH Scale
Date of Subsequent NIH Scale: 11/14/23
Time of Subsequent NIH Scale: 09:15
NIH Stroke Score
Level of Consciousness: 0 - Alert
LOC Questions: 2-Neither correct
LOC Commands: 0-Performs both correctly
Best Horizontal Gaze: 0-Normal
Visual Abraham: 0=Normal, no visual loss
Facial Palsy: 0=Normal, symmetrical
Motor - Right Arm: 0=No drift 10 seconds
Motor - Left Arm: 1=Drift < 10 seconds
Motor - Right Le-Partial vs. gravity
Motor - Left Le-Partial vs. gravity
Limb Ataxia: 1-Present in one limb
Sensation: 0-Normal
Best Language: 0-No aphasia
Dysarthria: 0-Normal
Extinction and Inattention: 0-No abnormality
Total Score:: 8
Modified Jun (mRS) Score
Modified Bowman Scale (mRS): Moderately severe disability. Unable to attend to bodily needs/walk.
Score: 4

Documented by User: Baldo Dasilva MD 11/14/23 11:35
Modified Jun Score (MRS)
-
Score: 4
NIH Stroke Score
NIH Stroke Score
Total Score:: 8
Modified Bowman (mRS) Score
Score: 4
[2023-11-14] MEDS: HEPARIN 5000 UNITS SC ×2 (08:07→19:47)
[2023-11-14] MEDS: ZESTRIL 10 MG PO ×2 (08:07→19:49)
--- NOTE | 2023-11-14 08:33 | W.PN.HOSP.TC ---
Today's Communication/Plan
-
Consult PM&R
Assessment / Plan
Assessment / Plan
HPI: 82 woman with left sided weakness
# Hemorrhagic stroke with left hemiplegia.
CT Showed Acute parenchymal hemorrhage in the region of the right thalamus and garner radiata at the level of the body of the right lateral ventricle, measuring approximately 2.4 x 2.1 x 1.9 cm, no significant midline shift
Appreciate neurology and neurosurgery input, no need for surgical intervention, Neurosurg signed off
Status post Cardene drip with goal SBP 100�140
Repeat MRI 11/12 shows stability of hemorrhagic stroke
PT/OT - rec acute rehab, c/s PMR
SPL recommends regular diet with thin liquids, aspiration precautions
Hold antiplatelets/anticoagulation
Okay for heparin for DVT prophylaxis 11/13 AM
Discharge to acute rehab with bed available
# Mild dementia, known to have cognitive impairment at baseline
# Primary HTN with HTN emergency
Blood pressure improved with lisinopril 10 mg twice daily
We will also add hydralazine 25 mg twice daily
Continue as IV needed hydralazine
# Heart Murmur - neither she or think she has had one before
Echo requested
#Mixed hyperlipidemia
Continue statin
#Hypothyroidism
Continue Synthroid
DVT ppx - subcu heparin
Full code
Physical Exam
General: Appears Chronically Ill, no acute distress
HEENT: Normocephalic, Moist mucous membranes, No Ptosis, Nose Appears Normal and Ears Appear Normal
Respiratory: Clear
Cardiac: S1/S2 and Murmur
GI: Soft, Non Tender and Non Distended
Musculoskeletal: No Clubbing, No Cyanosis and No Edema
Skin: Warm and Dry; No Rash or Jaundice
Neuro: Awake and Alert, oriented to place, she followed simple commands, left sided weakness ( upper & lower extremity) - improved from prior
Psych: Calm, no agitation
Anticipated Discharge: Within 24 hours
Subjective/Interval History
-
Date of Service: November 14, 2023
Patient's left-sided weakness continues to improve. She is eating and drinking fine. No fever, no vomiting.
Objective Data
-
Labs:
Laboratory Results
11/14/23
06:05
WBC 10.8
Hgb 12.9
Hct 38.1
Plt Count 267
Sodium 134 L
Potassium 3.9
Chloride 103
Carbon Dioxide 28
BUN 29 H
Creatinine 0.7
Glucose 101 H
Calcium 9.0
Total Bilirubin 1.0
AST 68 H
ALT 32
Alkaline Phosphatase 62
Vital Signs:
Vital Signs
Temp Pulse Resp BP Pulse Ox
98.2 F 75 18 137/67 100
11/14/23 08:23 11/14/23 08:23 11/14/23 08:23 11/14/23 08:23 11/14/23 08:23
I&O
11/13/23 11/14/23 11/15/23
06:59 06:59 06:59
Intake Total 1482.5 / 1482.5 1440 / 1440
Output Total 1700 / 1700 200 / 200
Balance -217.5 / -217.5 1240 / 1240
[2023-11-14 12:25] LABS: Glycohemoglobin (HgbA1c) 5.8 % (4.0-5.6)
[2023-11-14] MEDS: APRESOLINE 10 MG IV (12:42)
--- NOTE | 2023-11-14 14:03 | PN.CDI ---
CDI
- -
CDI:
Physician Documentation Request
Admit Date: 11/11/23 17:35
Dear Doctor Brown,
Please review the following and provide your response in the progress notes.
Clinical Indicators:
Pt admitted with hemorrhagic CVA
The diagnosis of vasogenic edema was included in the signed 11/13/23 MRI brain
Additional clinical indicators in the chart include:
11/12 MRI 'There is a large amount of vasogenic edema throughout the right thalamus, right internal capsule, and right external capsule around the hemorrhage.'
Please indicate in your progress notes if you are in agreement that the above diagnosis is valid for this patient:
____ - vasogenic edema is a valid diagnosis (Please include it in your progress notes)
____ - vasogenic edema is not a valid diagnosis for this patient
____ - vasogenic edema is not yet confirmed but remains a suspected condition
____ - Other
Use of terms such as suspected, likely, concern for, or probable are acceptable for a diagnosis that is being evaluated, monitored or treated as if it exists and can be coded in the inpatient setting, when documented at the time of discharge.
Thank you,
Laly Osman RN, BSN
CDI Specialist
Please use your independent medical judgment in providing your response.
--- NOTE | 2023-11-14 14:24 | PN.CDI ---
CDI
- -
CDI:
Physician Documentation Request
Admit Date: 11/11/23 17:35
Dear Doctor Do,
Please review the following and provide your response in the progress notes.
Pt admitted with hemorrhagic CVA
Clinical Indicators:
Height: 5ft.
Weight: 99lbs
BMI: 18.4
Other Clinical Notes:
11/11 Negative Notcher note:'BMI 19.4 considered under wt/ht age >65.'
If possible, please provide an associated diagnosis related to the abnormal BMI, such as:
Underweight
Cachectic
BMI is not significant
Other
Use of terms such as suspected, likely, concern for, or probable (associated with a specific diagnosis that is being evaluated, monitored, or treated as if it exists) are acceptable and can be coded in the inpatient setting, when documented at the
time of discharge.
Thank you,
Laly Osman RN, BSN
CDI Specialist
Please use your independent medical judgment in providing your response.
[2023-11-14] MEDS: LIPITOR 20 MG PO (17:30)
[2023-11-14] MEDS: APRESOLINE 25 MG PO (17:30)
[2023-11-14] MEDS: APRESOLINE PO (19:59)
[2023-11-15] VITALS (9 sets, daily range): BP systolic 122–149; BP diastolic 59–82; PULSE 82–85; O2SAT 96–97
[2023-11-15] MEDS: SYNTHROID 50 MCG PO (06:14)
--- NOTE | 2023-11-15 08:33 | W.PN.HOSP.TC ---
Today's Communication/Plan
-
Discharge to acute rehab when bed available
Assessment / Plan
Assessment / Plan
HPI: 82 woman with left sided weakness
# Hemorrhagic stroke with left hemiplegia.
CT Showed Acute parenchymal hemorrhage in the region of the right thalamus and garner radiata at the level of the body of the right lateral ventricle, measuring approximately 2.4 x 2.1 x 1.9 cm, no significant midline shift
Appreciate neurology and neurosurgery input, no need for surgical intervention, Neurosurg signed off
Status post Cardene drip with goal SBP 100�140
Repeat MRI 11/12 shows stability of hemorrhagic stroke
PT/OT - rec acute rehab, PMR consulted 11/13
SPL recommends regular diet with thin liquids, aspiration precautions
Avoid NSAIDS, antiplatelets/anticoagulation
Okay for heparin for DVT prophylaxis 11/13 AM
Discharge to acute rehab with bed available
# Mild dementia, known to have cognitive impairment at baseline
# Primary HTN with HTN emergency
Blood pressure controlled with lisinopril 10 mg twice daily, hydralazine 25 mg twice daily
Continue as IV needed hydralazine
# Heart Murmur - neither she or think she has had one before
Echo w/ LVH, trace MR, mild-mod , mod TR, no embolism
#Mixed hyperlipidemia
Continue statin
#Hypothyroidism
Continue Synthroid
#Underweight
Encourage oral intake
DVT ppx - subcu heparin
Full code
Left message with 11/13
Total time spent to see the patient on the floor, examine the patient, review data and lab results, discuss treatment plan with patient, nursing staff around 35 minutes.
Physical Exam
General: Appears Chronically Ill, no acute distress
HEENT: Normocephalic, Moist mucous membranes, No Ptosis, Nose Appears Normal and Ears Appear Normal
Respiratory: Clear
Cardiac: S1/S2 and Murmur
GI: Soft, Non Tender and Non Distended
Musculoskeletal: No Clubbing, No Cyanosis and No Edema
Skin: Warm and Dry; No Rash or Jaundice
Neuro: Awake and Alert, oriented to place, she followed simple commands, left sided weakness ( upper & lower extremity) - improved from prior
Psych: Calm, no agitation
Anticipated Discharge: Within 24 hours
Subjective/Interval History
-
Date of Service: November 15, 2023
No acute events. L sided weakness continues to improve. No fever, no CP/SOB, no vomiting.
Objective Data
-
Vital Signs:
Vital Signs
Temp Pulse Resp BP Pulse Ox
98.1 F 75 18 125/72 96
11/15/23 08:17 11/15/23 08:17 11/15/23 08:17 11/15/23 08:17 11/15/23 08:17
I&O
11/14/23 11/15/23 11/16/23
06:59 06:59 06:59
Intake Total 1440 / 1440 720 / 720
Output Total 200 / 200
Balance 1240 / 1240 720 / 720
[2023-11-15] MEDS: APRESOLINE 25 MG PO ×2 (08:43→20:22)
[2023-11-15] MEDS: ZESTRIL 10 MG PO ×2 (08:43→20:22)
[2023-11-15] MEDS: HEPARIN 5000 UNITS SC ×2 (08:44→20:20)
--- NOTE | 2023-11-15 09:22 | CM ---
Spoke with patient's via phone to discuss discharge plan; explained that Acute Rehab was recommended; is agreeable with plan and preference is [facility] if bed is available
Referral to [facility] sent via [facility]; spoke with Elle @ [facility] via phone
Plan: pending outcome of PM&R consult and bed availability, patient will be discharge to [facility]
[employer] Insurance Authorization needed
[2023-11-15] MEDS: ERYTHROMYCIN 0.5% OPHTHALMIC OINTMENT 1 APPLIC OPHTH ×3 (14:45→20:23)
[2023-11-15] MEDS: APRESOLINE 10 MG IV ×2 (16:28→23:09)
[2023-11-15] MEDS: LIPITOR 20 MG PO (18:02)
[2023-11-16] VITALS (9 sets, daily range): BP systolic 129–143; BP diastolic 57–73; PULSE 85–88; O2SAT 95
[2023-11-16] MEDS: APRESOLINE 10 MG IV ×2 (04:50→17:24)
[2023-11-16] MEDS: SYNTHROID 50 MCG PO (05:08)
[2023-11-16] MEDS: HEPARIN 5000 UNITS SC ×2 (08:14→20:48)
[2023-11-16] MEDS: ZESTRIL 10 MG PO ×2 (08:15→20:48)
[2023-11-16] MEDS: APRESOLINE 25 MG PO ×2 (08:15→20:48)
[2023-11-16] MEDS: ERYTHROMYCIN 0.5% OPHTHALMIC OINTMENT 1 APPLIC OPHTH ×4 (08:15→21:46)
--- NOTE | 2023-11-16 09:06 | W.PN.HOSP.TC ---
Today's Communication/Plan
-
see bold
Assessment / Plan
Assessment / Plan
HPI: 82 woman with left sided weakness
# Hemorrhagic stroke with left hemiplegia.
CT Showed Acute parenchymal hemorrhage in the region of the right thalamus and garner radiata at the level of the body of the right lateral ventricle, measuring approximately 2.4 x 2.1 x 1.9 cm, no significant midline shift
Appreciate neurology and neurosurgery input, no need for surgical intervention, Neurosurg signed off
Status post Cardene drip with goal SBP 100�140
Repeat MRI 11/12 shows stability of hemorrhagic stroke
PT/OT - rec acute rehab, PMR consulted 11/13
SPL recommends regular diet with thin liquids, aspiration precautions
Avoid NSAIDS, antiplatelets/anticoagulation
Okay for heparin for DVT prophylaxis 11/13 AM
Discharge to acute rehab with bed available
# Mild dementia, known to have cognitive impairment at baseline
# Primary HTN with HTN emergency
Blood pressure controlled with lisinopril 10 mg twice daily, hydralazine 25 mg twice daily
Continue as IV needed hydralazine
#Bacterial conjunctivitis
Started on erythromycin ophthalmic ointment 11/14
# Heart Murmur - neither she or think she has had one before
Echo w/ LVH, trace MR, mild-mod , mod TR, no embolism
#Mixed hyperlipidemia
Continue statin
#Hypothyroidism
Continue Synthroid
#Underweight
Encourage oral intake
DVT ppx - subcu heparin
Full code
Left message with 11/13
Total time spent to see the patient on the floor, examine the patient, review data and lab results, discuss treatment plan with patient, nursing staff around 35 minutes.
Physical Exam
General: Appears Chronically Ill, no acute distress
HEENT: Normocephalic, Moist mucous membranes, No Ptosis, Nose Appears Normal and Ears Appear Normal
Respiratory: Clear
Cardiac: S1/S2 and Murmur
GI: Soft, Non Tender and Non Distended
Musculoskeletal: No Clubbing, No Cyanosis and No Edema
Skin: Warm and Dry; No Rash or Jaundice
Neuro: Awake and Alert, oriented to place, she followed simple commands, left sided weakness ( upper & lower extremity) - improved from prior
Psych: Calm, no agitation
Anticipated Discharge: Within 24 hours
Subjective/Interval History
-
Date of Service: November 16, 2023
No acute events. L sided weakness continues to improve. No fever, no CP/SOB, no vomiting.
Objective Data
-
Vital Signs:
Vital Signs
Temp Pulse Resp BP Pulse Ox
97.6 F 80 18 137/73 98
11/16/23 08:08 11/16/23 08:08 11/16/23 08:08 11/16/23 08:08 11/16/23 08:08
I&O
11/15/23 11/16/23 11/17/23
06:59 06:59 06:59
Intake Total 720 / 720 720 / 720
Balance 720 / 720 720 / 720
--- NOTE | 2023-11-16 11:04 | CON.MD ---
Consultation - Medical
-
Referring Provider: Dr. Alexandru Vasquez
Chief Complaint: Stroke
History of Present Illness: 82-year-old right-handed female with PMH (as below) presented to [facility] on 11/11/2023 with difficulty standing because of left-sided weakness.
CT of the head noting:
a 3 cm acute/subacute parenchymal hemorrhage centered at the anterior aspect of the right thalamus and extending into the internal capsule on the right.
There is associated intraventricular extension with hemorrhage extending into the third and right lateral ventricles.
Moderate cortical atrophy with moderate nonspecific white matter changes as detailed above.
Seen by neurosurgery with serial CT scan monitoring and blood pressure control and there was no worsening of the hemorrhage. Patient able to participate in therapy and requires significant assistance with recommendation for acute rehab. Overall
she is not sure why she is here at the hospital but knows that she has not been feeling well. Denies any pain concerns at the moment. Is having some trouble with irritation of the eyes. Does have some trouble with vision at times but when focuses
on something is able to see something like the clock across the wall. Denies any numbness or tingling concerns. No difficulty with swallowing. No headache.
Past Medical History: Dementia, essential HTN, HLD, hypothyroidism, colonic polyps, impaired fasting glucose, meningioma, primary OA of the elbow
Procedure History: Denies
Family History: None pertinent
Social History:
Functional Level Premorbidly: Independent with all activities
Functional Level Currently:�� Max assist bed mobility, max assist transfers
Tobacco: Denies
Alcohol: Occasional
Drug use: Denies
Lives with: Spouse
24-hour assistance available: Yes
Number of floors: 2
# steps to enter: 2
# steps to second floor: Full flight
Potential First floor set up: No
Driving: Yes
Occupation: Retired
�
Allergies:
Allergy/AdvReac Type Severity Reaction Status Date / Time
No Known Allergies Allergy Verified 11/11/23 11:53
Review of Systems:
Constitutional: (x) abNormal _fatigue
Eye: (x) Normal _
Ear/Nose/Throat: (x) Normal _
Respiratory: (x) Normal _
Cardiovascular: (x) Normal _
Gastrointestinal: (x) Normal _
Genitourinary: (x) Normal _
Musculoskeletal: (x) Normal _
Integumentary: (x) Normal _
Neurologic: (x) abNormal _stroke with left-sided weakness, some vision concerns
Psychiatric: (x) Normal _
Endocrine: (x) Normal _
Hematologic/Lymphatic: (x) Normal _
Allergic/Immunologic: (x) Normal _
Medications:
Active Current Visit Medication List
Category Date Time Status
Acetaminophen [Tylenol/Feverall] Med 11/11/23 18:34 Active
650 mg RECTAL Q4HPRN PRN
Acetaminophen [Tylenol] Med 11/11/23 18:34 Active
650 mg PO Q4HPRN PRN
Atorvastatin [Lipitor] Med 11/11/23 18:34 Active
20 mg PO QPM
Erythromycin (Ilotycin) [Erythromycin 0.5% Ophthalmic Med 11/15/23 14:10 Active
Ointment]
See Dose Instructions OPHTH QID
Flush (0.9% Sodium Chloride) [Flush (Nss)] Med 11/11/23 19:00 Active
See Dose Instructions IV PER PROTOCOL
Heparin Med 11/14/23 08:00 Active
5,000 units SC Q12
HydrALAZINE [Apresoline] Med 11/12/23 21:12 Active
10 mg IV Q4HPRN PRN
HydrALAZINE [Apresoline] Med 11/14/23 15:05 Active
25 mg PO BID
Levothyroxine [Synthroid] Med 11/12/23 06:00 Active
50 mcg PO DAILY@0600
Lisinopril [Zestril] Med 11/12/23 20:00 Active
10 mg PO BID
Ondansetron Injectable [Zofran] Med 11/13/23 16:06 Active
4 mg IV Q6HPRN PRN
Vitals:
Temp Pulse Resp BP Pulse Ox
97.6 F 80 18 137/73 98
11/16/23 08:08 11/16/23 08:08 11/16/23 08:08 11/16/23 08:08 11/16/23 08:08
Height 5 ft
Actual Weight 45 kg
Body Mass Index (BMI) 19.4
Physical Exam:
General Appearance/Observation: Well-developed, well-nourished female in no apparent distress.
Pain/Comfort Assessment: Denies
Mood/Affect: Appropriate
Integumentary/Operative Site: No lesions noted during course of exam
Eyes: Conjunctiva/Lids: With some erythematous conjunctiva right more than left with some purulent discharge right more than left ��� pupils: pupils equal round and reactive to light and Accommodation
Ears/Nose/Throat: oral mucosa moist,� throat clear.������������ Lips/Teeth/Gums: normal
Cardiovascular: Heart: regular, no murmur
Pulses: dorsalis pedis 2+ bilaterally
Respiratory: Respiratory Effort/Chest Expansion: normal ������ Auscultation: Clear to auscultation bilaterally
Gastrointestinal: abdomen not tender, no distension, normal abdominal bowel sounds
Genitourinary: No Robins
Extremities: Edema: None Cyanosis: None Trophic changes: None
Neurology Exam:
Orientation: Alert, Oriented to self, place and president. Not oriented to time
Memory: Impaired
Repetition: Intact
Comprehension: Impaired
Two step command: Impaired
Naming: Intact
Cranial Nerves:
�� CNII: Pupillary light reflex: Intact��� Visual Field: Intact
�� CN III, IV, : Extraocular muscles: Intact
�� CN V: Facial Sensation at Forehead: Intact, Maxilla: Intact, Mandible: Intact
�� CN VII: Facial movement: Slight left facial weakness
�� CN VIII: Hearing: Normal
�� CN IX/X: Speech & swallow: Normal, Position of Uvula: Midline
�� CN XI: Shoulder shrug: Slight decreased on left
�� CN XII: Tongue protrusion: Midline
Sensory:
�� Light touch: Intact in bilateral upper and lower extremities, no extinction to double simultaneous stimulation but does have trouble attending to the left.
Reflexes:
�� Biceps: 2+ right, 3+ left
�� Brachioradialis: 2+ right, 3+ left
�� Triceps: 2+ right, 3+ left
�� Patellar: 2+ right, 3+ left
�� Achilles: 2+ right, 3+ left
�� Babinski: Down going right, upgoing left
�� Clonus: None
�� Shruti: Negative bilaterally
Cerebellar: Dysmetria/Ataxia: Limited on the left with weakness
Musculoskeletal:Motor: (Manual muscle scale 0-5)
Muscle SA EF WE EE FF FA HF KE DF EHL PF
Right� 4 4 4 4 5 4 5 5 5
Left 2 3+ 2 3 3+ 2 4 5 5
Tone: Normal in right upper and lower extremity. Increased tone versus inability to relax/follow commands left upper and lower extremity.
Range of Motion: Passively within normal limits in all extremities
Lab Results
Laboratory Data
11/14/23 06:05
11/14/23 06:05
PT 13.7 Sec (11.4-14.6) 11/12/23 04:37
INR 1.07 11/12/23 04:37
APTT 28.0 Sec (23.4-35.0) 11/11/23 13:03
Total Bilirubin 1.0 mg/dl (0.2-1.3) 11/14/23 06:05
AST 68 U/L (14-36) H 11/14/23 06:05
ALT 32 U/L (0-35) 11/14/23 06:05
Alkaline Phosphatase 62 U/L (38-126) 11/14/23 06:05
Total Protein 6.5 g/dl (6.3-8.2) 11/14/23 06:05
Albumin 4.0 g/dl (3.5-5.0) 11/14/23 06:05
Diagnostic Results: as per HPI
Assessment
82-year-old R-handed F PMH (Dementia, essential HTN, HLD, hypothyroidism, colonic polyps, impaired fasting glucose, meningioma, primary OA of the elbow) with 11/11/2023 left hemiparesis secondary to acute/subacute parenchymal hemorrhage in the right
thalamus into the right internal capsule with associated intraventricular extension into the third and right lateral ventricles causing ADL and ambulatory dysfunction.
Plan
PM&R PT/OT to increase independence with ADLs, improve balance, coordination, endurance, strength, mobility, community reintegration, decreased burden of care on others and family education.
Hemorrhagic CVA: Secondary prophylaxis with statin, blood pressure control(SBP less than 140 and diastolic less than 90 to participate with therapy for hemorrhagic stroke). Continue to monitor neurologic status.
Left nondominant hemiparesis: High risk for falls and sliding out of chair/bed. Safety reinforced.
- Avoid using affected arm to help lift or pull patient as this will cause trauma to the shoulder.
Left inattention: makes patient at increased risk for falls.� Will need therapy to work on scanning of environment for safe navigation.
HTN: Lisinopril 10 mg, monitor closely
HLD: Statin������
Hypothyroidism: levothyroxine
Impaired glucose tolerance: Hemoglobin A1c 5.8. Suggest dietary changes.
Mild dementia history: Noted
FEN: Mild elevated BUN, encourage hydration.
Psych: Psychology consult.� Monitor mood, medications as needed.
Skin: monitor for pressure sores/rashes/lesions.
Pain: acetaminophen as needed.
Bowel: Colace and Senna, PRN bisacodyl.
Bladder: Time void, PVRs, PRN straight cath.
DVT Prophylaxis: Mechanical and heparin.
Pulmonary: Incentive spirometry
Safety: Continue to reinforce assistance with all transfers.
Code Status:� Full code
Dispo (date/plan/equipment needs): Home with family care.
Functional and Medical Goals: Modified Independent with ADL�s, ambulation, transfers
Discharge Destination: Acute inpatient rehabilitation
A total of 60 minutes were spent with the patient preparing for the evaluation, obtaining history, performing examination and evaluation, counseling, data review, case management, care coordination, discussion with nursing, ordering machine operator, and EMR
documentation.
Summary of recommendations:
- Discharge Destination: Acute inpatient rehabilitation
Hemorrhagic CVA: Secondary prophylaxis with statin, blood pressure control(SBP less than 140 and diastolic less than 90 to participate with therapy for hemorrhagic stroke). Continue to monitor neurologic status.
Left nondominant hemiparesis: High risk for falls and sliding out of chair/bed. Safety reinforced.
- Avoid using affected arm to help lift or pull patient as this will cause trauma to the shoulder.
Left inattention: makes patient at increased risk for falls.� Will need therapy to work on scanning of environment for safe navigation.
HTN: Lisinopril 10 mg, monitor closely
Bowel: Colace and Senna, PRN bisacodyl.
Bladder: Time void, PVRs, PRN straight cath.
DVT Prophylaxis: Mechanical and heparin.
Thank you for allowing me to care for your patient. Please contact me with any questions or concerns.
--- NOTE | 2023-11-16 11:43 | CM ---
Addendum entered by Bethany Meeks 11/16/23 16:23:
Clinicals faxed to
Addendum entered by Bethany Meeks 11/16/23 15:40:
Authorization submitted via [employer] Reference # [id number] Status: Pended
Requires Medical Review
Addendum entered by Bethany Meeks 11/16/23 15:00:
PM&R Consult completed
Plan: pending insurance authorization patient will discharge to [facility] for acute rehab
Original Note:
Plan: DC to Acute Rehab when medically stable
PM&R still pending; called Elle @ [facility]; referral accepted; bed is available; Need PMR to submit AUTH to [employer]
Attending notified via [place] [facility]
--- NOTE | 2023-11-16 13:44 | PTOTSP ---
ST Follow-Up
Pt presents with s/s consistent with possible mild pharyngeal dysphagia. Pt would benefit from an instrumental swallow study to gather additional information.
Recommendations:
- Continue with regular solids, thin liquids, meds as tolerated.
- Continue with aspiration precautions.
- Video fluoroscopic swallow study for further information.
- LINKING MACHINE OPERATOR will continue to follow closely.
[2023-11-16] MEDS: LIPITOR 20 MG PO (17:24)
[2023-11-16] MEDS: TYLENOL 650 MG PO (18:20)
--- NOTE | 2023-11-16 20:02 | PTCARENOTE ---
RN in patients room to reposition in bed, pt guarding right leg c/o pain, weakness noted to right leg, new finding. NIH completed with a score of 9. previous score 6. Pt has known weakness in left leg but was weaker in comparison to morning
assessment. Pt bp elevated, given hydralazine per orders. Overall pt just looks uncomfortable, fidgety in bed C/o blurred vision, pt however receiving erythromycin ointment QID. Spoke with MD. Orders for repeat head ct, pt taken down on stretcher
with staff. Repeat bp stable after hydralazine administration, Pt call bernal within reach, plan of care ongoing.
[2023-11-16] MEDS: MELATONIN 5 MG PO (21:47)
[2023-11-17] VITALS (8 sets, daily range): BP systolic 132–163; BP diastolic 62–86
[2023-11-17] MEDS: APRESOLINE 10 MG IV (05:04)
[2023-11-17] MEDS: SYNTHROID 50 MCG PO (05:13)
[2023-11-17] MEDS: ZESTRIL 10 MG PO (09:39)
[2023-11-17] MEDS: APRESOLINE 25 MG PO ×2 (09:40→16:00)
[2023-11-17] MEDS: HEPARIN 5000 UNITS SC (09:40)
[2023-11-17] MEDS: ERYTHROMYCIN 0.5% OPHTHALMIC OINTMENT 1 APPLIC OPHTH ×3 (09:40→17:13)
[2023-11-17] MEDS: TYLENOL 650 MG PO (09:52)
[2023-11-17] MEDS: KENALOG/TRIAMCINOLONE 0.1% LOTION 1 APPLIC TOPICAL ×2 (13:37→16:00)
--- NOTE | 2023-11-17 14:59 | W.PN.HOSP.TC ---
Addendum entered and electronically signed by Alexandru Vasquez MD 11/17/23 15:09:
#Dermatitis on back
Start triamcinolone cream for 7 days
Original Note:
Today's Communication/Plan
-
Discharge to acute rehab when bed available
Assessment / Plan
Assessment / Plan
HPI: 82 woman with left sided weakness
# Hemorrhagic stroke with left hemiplegia.
CT Showed Acute parenchymal hemorrhage in the region of the right thalamus and garner radiata at the level of the body of the right lateral ventricle, measuring approximately 2.4 x 2.1 x 1.9 cm, no significant midline shift
Appreciate neurology and neurosurgery input, no need for surgical intervention, Neurosurg signed off
Status post Cardene drip with goal SBP 100�140
Repeat MRI 11/12 shows stability of hemorrhagic stroke
PT/OT - rec acute rehab, PMR consulted 11/13
SPL recommends regular diet with thin liquids, aspiration precautions
Avoid NSAIDS, antiplatelets/anticoagulation
Okay for heparin for DVT prophylaxis 11/13 AM
11/[address] shows hemorrhage
Discharge to acute rehab with bed available
# Mild dementia, known to have cognitive impairment at baseline
# Primary HTN with HTN emergency
Blood pressure controlled with lisinopril 10 mg twice daily, hydralazine 25 mg twice daily
Continue as IV needed hydralazine
#Bacterial conjunctivitis
Started on erythromycin ophthalmic ointment 11/14
# Heart Murmur - neither she or think she has had one before
Echo w/ LVH, trace MR, mild-mod , mod TR, no embolism
#Mixed hyperlipidemia
Continue statin
#Hypothyroidism
Continue Synthroid
#Underweight
Encourage oral intake
DVT ppx - subcu heparin
Full code
Left message with 11/13
Total time spent to see the patient on the floor, examine the patient, review data and lab results, discuss treatment plan with patient, nursing staff around 35 minutes.
Physical Exam
General: Appears Chronically Ill, no acute distress
HEENT: Normocephalic, Moist mucous membranes, No Ptosis, Nose Appears Normal and Ears Appear Normal
Respiratory: Clear
Cardiac: S1/S2 and Murmur
GI: Soft, Non Tender and Non Distended
Musculoskeletal: No Clubbing, No Cyanosis and No Edema
Skin: Warm and Dry; No Rash or Jaundice
Neuro: Awake and Alert, oriented to place, she followed simple commands, left sided weakness ( upper & lower extremity) - improved from prior
Psych: Calm, no agitation
Anticipated Discharge: Today
Subjective/Interval History
-
Date of Service: November 17, 2023
Patient having some right leg weakness, complains of pain in her right knee, likely from arthritis. No fever, no vomiting.
Objective Data
-
Vital Signs:
Vital Signs
Temp Pulse Resp BP Pulse Ox
98.1 F 72 18 151/83 95
11/17/23 11:58 11/17/23 11:58 11/17/23 11:58 11/17/23 11:58 11/17/23 11:58
I&O
11/16/23 11/17/23 11/18/23
06:59 06:59 06:59
Intake Total 720 / 720 840 / 840
Balance 720 / 720 840 / 840
--- NOTE | 2023-11-17 15:03 | W.DCSUMMARY ---
Discharge Summary
Discharge Data
Date of Admission: 11/11/23
Date of Discharge: 11/17/23
-
Pending Results: No
Hospital Course
Discharge diagnosis:
Acute hemorrhagic stroke with left-sided hemiparesis
Mild dementia, unknown type
Primary essential hypertension with hypertensive emergency
Bacterial conjunctivitis
Dermatitis of the back
Heart murmur
Hyperlipidemia
Hypothyroidism
Underweight
Meningioma
Cervical spine central disc herniation
Consults: Neurology, neurosurgery, purchase price analyst
Brain MRI:
1. LARGE EARLY SUBACUTE (3-7 days old) INTRAPARENCHYMAL HEMORRHAGE in the right thalamus, posterior limb of the right internal capsule, and periventricular right frontal lobe extending into the right lateral ventricle with intraventricular
hemorrhage layering in the occipital horn of the right lateral ventricle which appears unchanged.
2. CHRONIC HYPERTENSIVE MICROANGIOPATHY with multiple chronic intraparenchymal microhemorrhages in the thalami, right caudate nucleus, brainstem, and cerebellum.
3. Severe white matter leukoaraiosis in the frontal and parietal lobes.
4. Mild diffuse cerebral and cerebellar volume loss.
5. 8.1 mm meningioma lateral to the left frontal lobe.
6. Moderate-sized central disc herniation at C4/C5 causing mild spinal cord compression and central canal stenosis.
Echo:
Left ventricle is small in size. Mild concentric left ventricular hypertrophy.
Normal left ventricular systolic function. Normal regional wall motion. Left
ventricular ejection fraction is 65-70% by volumetric assessment. Normal
diastolic function.
Mildly thickened mitral valve leaflets. Mitral valve opens normally.
Calcification of the anterior mitral leaflet tip. Trace mitral regurgitation is
seen.
Trileaflet calcified aortic valve with decreased leaflet excursion. Mild to
moderate aortic stenosis. Peak/mean gradients across the aortic valve are 20/11
mmHg respectively. Aortic valve area 1.2 cm2 using LVOT diameter of 1.9 cm.
No aortic regurgitation is seen.
Tricuspid valve opens normally. Moderate tricuspid regurgitation. Estimated
pulmonary artery pressure of 30 mmHg assuming a right atrial pressure of 3
mmHg.
There is no cardiac embolic source seen. However if clinical suspicion is high
would suggest [facility].
Hospital course:
82-year-old female with a past medical history of dementia, hypothyroidism, benign essential hypertension, and hyperlipidemia presented with inability to stand. Patient was found to have an acute hemorrhagic stroke on head CT.
Patient was seen in conjunction with the purchase price analyst, neurology, and neurosurgery. Neurosurgery recommends blood pressure control and continued monitoring. Patient was initially treated with a Cardene drip in the ICU, goal systolic blood pressure
100�140. Patient was able to be resumed on her oral blood pressure medications, and the Cardene drip was discontinued. She was stable for transfer out of the ICU.
Neurology recommends no antiplatelets, no anticoagulation. She was started on subcu heparin for DVT prophylaxis on 11/14/2023.
Patient's blood pressure became controlled on lisinopril 10 mg twice a day, and hydralazine 25 mg 3 times daily.
Patient had bacterial conjunctivitis, which was treated with erythromycin ointment. This can be continued upon discharge.
Patient had contact dermatitis of her back, which was treated with triamcinolone cream. This can also be continued upon discharge.
Patient was seen by PT and physiatry, who recommended acute rehab. [facility] recommends [facility] at [facility]. She is medically stable and cleared by neurology for discharge. She needs to follow-up with neurology in the office in 4-6 weeks, and her primary
care doctor 1 week after she leaves rehab.
Disposition: Acute rehab
Discharge planning: Required 37 minutes
Discharge Plan
-
Patient Disposition: Acute Rehab Facility
Discharge Diagnosis/Procedures: Acute hemorrhagic stroke, mild dementia, essential hypertension with hypertensive emergency, bacterial conjunctivitis, moderate tricuspid regurgitation
Activity Restrictions/Additional Instructions:
[facility] recommends [facility], can be done at [facility].
Avoid NSAIDS, antiplatelets/anticoagulation.
Referrals:
Geno Shepard CRNP [Specified Professional Personl] - in four to six weeks
Mahendra Gaffney PA-C [Family Provider] - in one week
Prescriptions:
New
acetaminophen 325 mg Tablet
650 mg PO Q4HPRN PRN (Reason: [place], mild pain, or temp >100.4F) Qty: 0 0RF
hydralazine 25 mg Tablet
25 mg PO TID Qty: 90 0RF
Patient Comments:
next dose at 11/17/23 at 10 pm
erythromycin 5 mg/gram (0.5 %) Ointment
1 applic ophthalmic (eye) QID 7 Days Qty: 100 0RF
lisinopril 10 mg Tablet
10 mg PO BID Qty: 0 0RF
Patient Comments:
next dose at 11/17/23 at 8 pm
triamcinolone acetonide 0.1 % Lotion
1 applic topical TID 7 Days Qty: 100 0RF
Rx Instructions:
for 7 days
melatonin 5 mg Tablet
5 mg PO HS Qty: 0 0RF
Continued
atorvastatin [Lipitor] 20 mg Tablet
20 mg PO QPM
therapeutic multivitamin Tablet
1 tab PO DAILY
ascorbic acid (vitamin C) [Vitamin C] 500 mg Tablet
500 mg PO DAILY
levothyroxine [Synthroid] 50 mcg Tablet
50 mcg PO DAILY
coQ10 (ubiquinol) 100 mg Capsule
100 mg PO DAILY
Discontinued
lisinopril 2.5 mg Tablet
2.5 mg PO DAILY
Discharge Orders:
Discharge Patient (As Directed); Ordered 11/17/23
Ordered By: Alexandru Vasquez
Discharge Date and Time
Discharge Date/Time: 11/17/23 19:55
Print Language: KOREAN
--- NOTE | 2023-11-17 16:46 | CM ---
met with patient at bedside.she is stable for dc to [facility] at today per attending.i spoke with adm at [facility] and they confirmed patient had a bed today.spoke with rich herzog 505end faxed updated clinicals to her.rich from [facility] approved 13 days
starting 11/15 and NRD 11/29/23 and fax to rich at [phone].i auth number is [id number].let attending know and TT sent to floor nurse ryan.phone number to call report is [phone].i called and explained imm letter and he was fine
with dc to [facility] at today.
[2023-11-17] MEDS: LIPITOR 20 MG PO (17:13)
--- NOTE | 2023-11-17 17:57 | PTCARENOTE ---
Pt discharged to [facility] via wheelchair with family present. Monitor and INT removed. Transfer packet sent with pt.
== END 2023-11-17 19:55 | DRG 64 ==
LOC: 4 EAST ACU 17:35
PROVIDERS: Internal Medicine Critical Care Medicine; Nurse Practitioner Family; ADMITTING PHYSICIAN Internal Medicine; ATTENDING PHYSICIAN Family Medicine; CONSULT PHYSICIAN Internal Medicine Pulmonary Disease; CONSULT PHYSICIAN Physical Medicine & Rehabilitation; CONSULT PHYSICIAN Psychiatry & Neurology Neurology; EMERGENCY PHYSICIAN Emergency Medicine; FAMILY PHYSICIAN Physician Assistant Medical; OTHER PHYSICIAN Neurological Surgery
DX: I61.0 Nontraumatic intracerebral hemorrhage in hemisphere, subcortical (principal); G93.6 Cerebral edema; G81.94 Hemiplegia, unspecified affecting left nondominant side; I16.1 Hypertensive emergency; Z68.1 Body mass index [BMI] 19.9 or less, adult; I10 Essential (primary) hypertension; F03.A0 Unspecified dementia, mild, without behavioral disturbance, psychotic disturbance, mood disturbance, and anxiety; I61.5 Nontraumatic intracerebral hemorrhage, intraventricular; E03.9 Hypothyroidism, unspecified; E78.2 Mixed hyperlipidemia; R63.6 Underweight; L25.9 Unspecified contact dermatitis, unspecified cause; H10.89 Other conjunctivitis; I07.1 Rheumatic tricuspid insufficiency
CPT/HCPCS: 70450; 70553; 80048; 80053; 80061; 83036; 83735; 84100; 85025; 85027; 85610; 85730; 92507; 92526; 92610; 93005; 93306; 96365; 96366; 97110; 97163; 97167; 97530; 97535; 99285; A9575

== ENCOUNTER → 2023-12-26 09:35 | Outpatient (REF) | payer OTHER, SELFPAY | LOC: OLABN 09:35 | PROVIDERS: ATTENDING PHYSICIAN Student in an Organized Health Care Education/Training Program | DX: R43.8 Other disturbances of smell and taste (principal); R19.7 Diarrhea, unspecified | CPT/HCPCS: 87324; 87449 ==

== ENCOUNTER → 2024-01-17 23:00 | Outpatient (REF) | payer OTHER, SELFPAY | LOC: OLABN 23:00 | PROVIDERS: ATTENDING PHYSICIAN Student in an Organized Health Care Education/Training Program | DX: R43.8 Other disturbances of smell and taste (principal); R19.7 Diarrhea, unspecified | CPT/HCPCS: 87324; 87449 ==

== ENCOUNTER → 2024-04-08 14:18 | Outpatient (REF) | payer OTHER, SELFPAY | LOC: RAD 14:18 | PROVIDERS: ATTENDING PHYSICIAN Physician Assistant Medical | DX: F41.9 Anxiety disorder, unspecified (principal); Z86.73 Personal history of transient ischemic attack (TIA), and cerebral infarction without residual deficits; R60.0 Localized edema; I10 Essential (primary) hypertension; E78.2 Mixed hyperlipidemia; R79.89 Other specified abnormal findings of blood chemistry | CPT/HCPCS: 93971 ==

== ENCOUNTER 2024-04-22 11:00 | Outpatient (RCR) | payer OTHER, SELFPAY | END 2024-04-22 23:59 | disposition home or self-care (01) | LOC: RPT 11:00 | PROVIDERS: ATTENDING PHYSICIAN Physician Assistant Medical | DX: I69.154 Hemiplegia and hemiparesis following nontraumatic intracerebral hemorrhage affecting left non-dominant side (principal); I69.121 Dysphasia following nontraumatic intracerebral hemorrhage; I69.198 Other sequelae of nontraumatic intracerebral hemorrhage; I69.118 Other symptoms and signs involving cognitive functions following nontraumatic intracerebral hemorrhage; Z73.6 Limitation of activities due to disability | CPT/HCPCS: 96125; 97110; 97163 ==

== ENCOUNTER 2024-05-01 09:27 | Outpatient (RCR) | payer OTHER, SELFPAY | END 2024-05-06 07:09 | disposition home or self-care (01) | LOC: ROT 09:27 | PROVIDERS: ATTENDING PHYSICIAN Physician Assistant Medical | DX: I69.321 Dysphasia following cerebral infarction (principal); I69.318 Other symptoms and signs involving cognitive functions following cerebral infarction; Z73.6 Limitation of activities due to disability; I69.354 Hemiplegia and hemiparesis following cerebral infarction affecting left non-dominant side; F03.90 Unspecified dementia, unspecified severity, without behavioral disturbance, psychotic disturbance, mood disturbance, and anxiety | CPT/HCPCS: 97129; 97130; 97167; 97535 ==

== ENCOUNTER 2024-05-03 12:04 | Inpatient (IN) | payer OTHER, SELFPAY ==
[2024-05-03] VITALS (11 sets, daily range): BP systolic 104–171; BP diastolic 57–96; BMI 19.3
--- NOTE | 2024-05-03 09:28 | ED.MUSCINJ ---
HPI-Injury
<Doroteo Bertrand PA-C - Last Filed: 05/03/24 12:45>
General
Chief Complaint: Fall
Time Seen by Provider: 05/03/24 09:13
History of Present Illness-Injury
Initial Injury comments:
Patient is an 83-year-old female with past medical history of hypothyroidism, hyperlipidemia, hypertension, dementia, history of prior intracranial hemorrhage, and osteoarthritis here today via EMS after she sustained a suspected mechanical fall at
approximately 5 PM at home yesterday. Per daughter the patient lives at home with a live-in airline dispatcher. Patient was sitting on a recliner chair when the airline dispatcher was preparing dinner in the next room over. Tire Fixer suddenly heard a loud sound,
immediately went into the room, and noted the patient lying on the floor as she had fallen out of her recliner. No concern for head trauma. Daughter states the patient's leg was tucked underneath at an angle. Last night, she was complaining of
mild discomfort but nothing significant and she was able to transition with assistance without significant difficulties. Over the course of the night and into this morning the patient's pain has significantly worsened and she has been having more
difficulty with transitioning. She has been otherwise acting normal per daughter. No fevers. The patient herself denies preceding symptoms including dizziness, chest pain, shortness of breath, or feeling like she was going to pass out. She denies
head trauma or loss of consciousness. She states the fall was witnessed by a caregiver and she was only on the ground for several seconds. Patient currently denies acute complaints and only reports left lower extremity pain when moving. She
denies pain at rest. She denies other associated symptoms. No headache or dizziness. No visual changes. No numbness or tingling. No chest pain or difficulty breathing. No abdominal pain. No back pain. She denies pain elsewhere.
Past History
<Doroteo Bertrand PA-C - Last Filed: 05/03/24 12:45>
Past History
ED Past Medical History: HTN, Hypercholesterolemia and Hypothyroidism
Social History
Tobacco: Non-smoker
Personal:
Review of Systems
<Doroteo Bertrand PA-C - Last Filed: 05/03/24 12:45>
Review of Systems
All Other Systems: ROS reviewed and negative except as documented in HPI and ROS
Phy Exam
<Doroteo Bertrand PA-C - Last Filed: 05/03/24 12:45>
Physical Exam
Physical Exam:
GENERAL: Alert , in no apparent distress
EYE: pupils equal and reactive to light, extraocular movements intact
NECK: Supple, no significant adenopathy. No tenderness.
ENT: o/p clr, mmm.
CARDIAC: Regular rate and rhythm .
LUNGS: Clear breath sounds bilaterally, no acute respiratory distress, no wheezes/rales/rhonchi
ABDOMEN: Soft, without focal tenderness, no r/g, no cvat
NEUROLOGICAL: Alert and oriented, no focal neuro deficits, cranial nerves II through XII intact, moving all extremities freely (aside from left lower extremity), sensation intact throughout
MUSCULOSKELETAL: Mild tenderness to palpation along the anterior and lateral aspect of the left thigh, there is mild swelling, there is a slight deformity noted proximally in the left lower extremity is shortened and externally rotated, compartments
soft throughout, pulses 2+ throughout, sensation intact
SKIN: Warm and dry, skin intact.
BACK: No tenderness
MUSCULOSKELETAL: No edema, well perfused.
PSYCH: Normal and appropriate interaction.
Injury Course
<Doroteo Bertrand PA-C - Last Filed: 05/03/24 12:45>
Orders/Labs/Results
Orders:
Orders
05/03/24 09:21
EKG [Electrocardiogram (*1)] Urgent
Reason for Study: Syncope
05/03/24 09:22
EKG- Treatment ONCE
05/03/24 09:23
CR Femur - Left Min 2 Vw Urgent
Comment:
Reason For Exam: hip pain, concern for cx
CR Hip - LT w/wo Pel 2-3 Vw* Urgent
Comment:
Reason For Exam: hip pain, concern for cx
Include a pelvis x-ray?: Yes
05/03/24 Lunch
NPO
Allow oral meds: Yes
Allow clear liquids: No
05/03/24 11:05
Type+Screen Urgent
Complete Blood Count/With Diff Urgent
Comprehensive Metabolic Panel Urgent
PTT Urgent
Prothrombin Time Urgent
05/03/24 11:32
ABO2 Urgent
BBK Wristband Number:
Associate notified that ABO2 has been ordered: [id number]
Date: 05/03/24
Time: 11:15
Vocational Guidance Counselor ID: [id number]
05/03/24 11:38
Admit/Transfer Patient As Directed
Co-Sign Provider:
Level of Care: Inpatient admission
Assign to:: Medical/Surgical
Physician / Group: [facility]/hospitalist
Diagnosis: left proximal femur fx
Reason for Hospitalization: Fracture of the subtrochanteric left proximal femur.
Expected length of stay greater than two midnights?: Yes
ELOS- Estimated Length of Stay in days: 4
I certify the patient meets the requirements for IP care: Yes
PRN Pain Medication Management As Directed
May give lesser potent ordered pain med per pt: Yes
preference::
Protocol:: Medication orders for pain may be administered in a
manner that supports deferring to patient preference
when the pt is:
- Requesting an ordered lesser potent pain medication.
Least to most potent pain medications are defined
as: acetaminophen < NSAID < tramadol < opioids
(morphine, oxycodone, hydromorphone).
- Requesting a lesser dose of the same medication IF
ORDERED.
- Requesting a less intrusive route of administration
if both routes are prescribed by the provider (PO <
IV).
05/03/24 11:41
Code Status As Directed
Resuscitation Status: Full Code
05/03/24 15:01
Magnesium Hydroxide [Milk of Magnesia] 30 ml PO DAILYPRN PRN
Morphine Sulfate 1 mg IV Q2HPRN PRN
Oxycodone [Roxicodone] 5 mg PO Q4HPRN PRN
Tamsulosin [Flomax] 0.4 mg PO DAILYPRN PRN
05/03/24 15:01
ORTHOPEDIC CONSULT Routine
Consulting Provider: Tyshawn Rolon
Was physician already notified: Yes
Activity As Directed
Activity Level: Out of Bed-Early Mobility
Bladder Scan As Directed
Follow Bladder Retention/Intermittent Cath Algorithm?: Yes
PRN if no void in __ hours: 6
Comment: if not voiding 6 hrs upon arrival to floor, bladder scan & follow algorithm
Intake/ Output As Directed
Frequency: Per unit guidelines
Pneumatic Compression Sleeves As Directed
Type: Knee high
Straight Cath As Directed
Frequency: Per Retention Algorithm
Additional Instructions: straight cath as needed per acute urinary retention algorithm for 24 hrs
Additional Instructions: for bladder scan greater than 400 mL
Vital Signs As Directed
Frequency: Per unit guidelines
DX Deep Vein Thrombosis Video Routine
05/03/24 16:00
Acetaminophen [Tylenol] 650 mg PO Q4HWA
05/03/24 18:00
Atorvastatin [Lipitor] 20 mg PO QPM
05/03/24 20:00
Docusate Sodium [Colace] 100 mg PO BID
Sennosides [Senokot] 17.2 mg PO BID
05/04/24 06:00
BMP [Basic Metabolic Panel] IN AM
CBC/With Diff [Complete Blood Count/With Diff] IN AM
Levothyroxine [Synthroid] 50 mcg PO DAILY@0600
05/04/24 08:00
Amlodipine [Norvasc] 5 mg PO DAILY
Lisinopril [Zestril] 10 mg PO DAILY
Multivitamin [Theragran] 1 tablet PO DAILY
05/05/24 06:00
BMP [Basic Metabolic Panel] IN AM
CBC/With Diff [Complete Blood Count/With Diff] IN AM
05/06/24 06:00
BMP [Basic Metabolic Panel] IN AM
CBC/With Diff [Complete Blood Count/With Diff] IN AM
Abnormal Lab Results
05/03/24
11:05
WBC 13.8 H 10^3/uL
(4.8-10.8)
RBC 3.57 L 10^6/uL
(4.20-5.40)
Hgb 11.0 L g/dL
(12.0-16.0)
Hct 31.6 L %
(37.0-47.0)
Abs Immat Gran (auto) 0.1 H 10^3/uL
(0-0.05)
Absolute Neuts (auto) 11.1 H 10^3/uL
(1.4-6.5)
Absolute Monos (auto) 1.3 H 10^3/uL
(0.1-0.6)
Neutrophils % 80.4 H %
(42.2-75.2)
Lymphocytes % 9.2 L %
(20.5-51.1)
Monocytes % 9.7 H %
(1.7-9.3)
BUN 30 H mg/dl
(7-17)
Glucose 146 H mg/dl
(70-99)
AST 44 H U/L
(14-36)
ALT 36 H U/L
(0-35)
05/03/24 11:05
05/03/24 11:05
Neillt;Hoang Granados, DO - Last Filed: 05/03/24 16:05>
Orders/Labs/Results
Orders:
Orders
05/03/24 09:21
EKG [Electrocardiogram (*1)] Urgent
Reason for Study: Syncope
05/03/24 09:22
EKG- Treatment ONCE
05/03/24 09:23
CR Femur - Left Min 2 Vw Urgent
Comment:
Reason For Exam: hip pain, concern for cx
CR Hip - LT w/wo Pel 2-3 Vw* Urgent
Comment:
Reason For Exam: hip pain, concern for cx
Include a pelvis x-ray?: Yes
05/03/24 Lunch
NPO
Allow oral meds: Yes
Allow clear liquids: No
05/03/24 11:05
Type+Screen Urgent
Complete Blood Count/With Diff Urgent
Comprehensive Metabolic Panel Urgent
PTT Urgent
Prothrombin Time Urgent
05/03/24 11:32
ABO2 Urgent
BBK Wristband Number:
Associate notified that ABO2 has been ordered: [id number]
Date: 05/03/24
Time: 11:15
Vocational Guidance Counselor ID: [id number]
05/03/24 11:38
Admit/Transfer Patient As Directed
Co-Sign Provider:
Level of Care: Inpatient admission
Assign to:: Medical/Surgical
Physician / Group: [facility]/hospitalist
Diagnosis: left proximal femur fx
Reason for Hospitalization: Fracture of the subtrochanteric left proximal femur.
Expected length of stay greater than two midnights?: Yes
ELOS- Estimated Length of Stay in days: 4
I certify the patient meets the requirements for IP care: Yes
PRN Pain Medication Management As Directed
May give lesser potent ordered pain med per pt: Yes
preference::
Protocol:: Medication orders for pain may be administered in a
manner that supports deferring to patient preference
when the pt is:
- Requesting an ordered lesser potent pain medication.
Least to most potent pain medications are defined
as: acetaminophen < NSAID < tramadol < opioids
(morphine, oxycodone, hydromorphone).
- Requesting a lesser dose of the same medication IF
ORDERED.
- Requesting a less intrusive route of administration
if both routes are prescribed by the provider (PO <
IV).
05/03/24 11:41
Code Status As Directed
Resuscitation Status: Full Code
05/03/24 15:01
Magnesium Hydroxide [Milk of Magnesia] 30 ml PO DAILYPRN PRN
Morphine Sulfate 1 mg IV Q2HPRN PRN
Oxycodone [Roxicodone] 5 mg PO Q4HPRN PRN
Tamsulosin [Flomax] 0.4 mg PO DAILYPRN PRN
05/03/24 15:01
ORTHOPEDIC CONSULT Routine
Consulting Provider: Tyshawn Rolon
Was physician already notified: Yes
Activity As Directed
Activity Level: Out of Bed-Early Mobility
Bladder Scan As Directed
Follow Bladder Retention/Intermittent Cath Algorithm?: Yes
PRN if no void in __ hours: 6
Comment: if not voiding 6 hrs upon arrival to floor, bladder scan & follow algorithm
Intake/ Output As Directed
Frequency: Per unit guidelines
Pneumatic Compression Sleeves As Directed
Type: Knee high
Straight Cath As Directed
Frequency: Per Retention Algorithm
Additional Instructions: straight cath as needed per acute urinary retention algorithm for 24 hrs
Additional Instructions: for bladder scan greater than 400 mL
Vital Signs As Directed
Frequency: Per unit guidelines
DX Deep Vein Thrombosis Video Routine
05/03/24 16:00
Acetaminophen [Tylenol] 650 mg PO Q4HWA
05/03/24 18:00
Atorvastatin [Lipitor] 20 mg PO QPM
05/03/24 20:00
Docusate Sodium [Colace] 100 mg PO BID
Sennosides [Senokot] 17.2 mg PO BID
05/04/24 06:00
BMP [Basic Metabolic Panel] IN AM
CBC/With Diff [Complete Blood Count/With Diff] IN AM
Levothyroxine [Synthroid] 50 mcg PO DAILY@0600
05/04/24 08:00
Amlodipine [Norvasc] 5 mg PO DAILY
Lisinopril [Zestril] 10 mg PO DAILY
Multivitamin [Theragran] 1 tablet PO DAILY
05/05/24 06:00
BMP [Basic Metabolic Panel] IN AM
CBC/With Diff [Complete Blood Count/With Diff] IN AM
05/06/24 06:00
BMP [Basic Metabolic Panel] IN AM
CBC/With Diff [Complete Blood Count/With Diff] IN AM
Abnormal Lab Results
05/03/24
11:05
WBC 13.8 H 10^3/uL
(4.8-10.8)
RBC 3.57 L 10^6/uL
(4.20-5.40)
Hgb 11.0 L g/dL
(12.0-16.0)
Hct 31.6 L %
(37.0-47.0)
Abs Immat Gran (auto) 0.1 H 10^3/uL
(0-0.05)
Absolute Neuts (auto) 11.1 H 10^3/uL
(1.4-6.5)
Absolute Monos (auto) 1.3 H 10^3/uL
(0.1-0.6)
Neutrophils % 80.4 H %
(42.2-75.2)
Lymphocytes % 9.2 L %
(20.5-51.1)
Monocytes % 9.7 H %
(1.7-9.3)
BUN 30 H mg/dl
(7-17)
Glucose 146 H mg/dl
(70-99)
AST 44 H U/L
(14-36)
ALT 36 H U/L
(0-35)
05/03/24 11:05
05/03/24 11:05
<Doroteo Bertrand PA-C - Last Filed: 05/03/24 12:45>
MDM/Problems Addressed
Differential Diagnosis Includes:
Patient is an 83-year-old female with past medical history of hypothyroidism, hyperlipidemia, hypertension, dementia, history of prior intracranial hemorrhage, and osteoarthritis here today via EMS after she sustained a suspected mechanical fall at
approximately 5 PM yesterday. Overall, patient appears very well. She is mildly hypertensive here. Vitals otherwise grossly within normal limits. On exam, the patient's left lower extremity is shortened and externally rotated suggestive of a
left-sided femur fracture. She is neurovascularly intact. Compartments soft throughout. There is no bony protrusion through the skin. Will begin with x-rays.
Update: X-rays reveal a fracture of the subtrochanteric left proximal femur. Case was discussed with the hospitalist and orthopedics, Dr. Rolon. NPO. Plan for operative intervention later today. Case discussed with attending, Dr. Granados.
<Doroteo Bertrand PA-C - Last Filed: 05/03/24 12:45>
*Critical Care Note
Total Time (30-74mins, 75-104mins- exclusive of procedures): Not Applicable
<Hoang Granados DO - Last Filed: 05/03/24 16:05>
*Radiology
Radiology exam reviewed: radiology read reviewed
*Pulse Oximetry
Patient hypoxic: no
*Critical Care Note
Total Time (30-74mins, 75-104mins- exclusive of procedures): Not Applicable
ED Attending Note
<Doroteo Bertrand PA-C - Last Filed: 05/03/24 12:45>
-
Portions of this chart may have been created with voice recognition software.� Occasional wrong word or��sound alike� substitutions may have occurred due to the inherent limitations of voice recognition software.
<Hoang Granados DO - Last Filed: 05/03/24 16:05>
ED Attending Note
Patient seen and examined by attending physician: Yes
I performed the substantive portion of visit, reviewed & personally made and approve the management plan that is documented in note by myself or CLARA.: Yes
ED Attending Note:
Seen with PA exam dependently elderly female prior stroke status post fall left hip pain
Discharge Plan
Departure
Patient Disposition: Admit
Date of Disposition: 05/03/24
Time of Disposition: 11:21
Admit to: Med/Surg
Admit to doctor: Long Figueroa
Presentation/result/management discussed w/ accepting MD/DO: Hospitalist
Patient with high blood pressure during this ER visit?: Yes
Condition: Serious
Covid-19: Not Applicable
Discharge Problem:
Fracture of left femur
Interventions
Interventions:
*Risk Screen - Suicide Last Done: 05/03/24 09:13
*General Assessment Last Done: 05/03/24 09:13
*Neglect/Abuse Screening Last Done: 05/03/24 09:13
*ED COVID-19 Vaccine History Last Done: 05/03/24 09:13
*Nursing Disposition Last Done: 05/03/24 14:05
ED-Musculoskeletal Assessment Last Done: 05/03/24 09:13
ED- Neurological Assessment Last Done: 05/03/24 09:13
ED-Skin Assessment Last Done: 05/03/24 09:13
Discharge Date and Time
Discharge Date/Time: 05/03/24 14:05
[2024-05-03 11:11] LABS: % Basophils 0.1 % (0-2); % Eosinophils 0.1 % (0-6); % Immature Granulocytes 0.5 % (0-0.5); % Lymphocytes 9.2 % (20.5-51.1); % Monocytes 9.7 % (1.7-9.3); % Neutrophils 80.4 % (42.2-75.2); Absolute Immature Granulocytes 0.1 10^3/uL (0-0.05); Absolute Lymphocytes 1.3 10^3/uL (1.2-3.4); Absolute Monocytes 1.3 10^3/uL (0.1-0.6); Absolute Neutrophils 11.1 10^3/uL (1.4-6.5); Hematocrit 31.6 % (37.0-47.0); Mean Corp Hgb Conc. 34.8 g/dL (33.0-37.0); Mean Corpuscular Hgb 30.8 pg (27.0-31.0); Mean Corpuscular Volume 88.5 fL (81.0-99.0); Mean Platelet Volume 9.3 fL (7.4-10.4); Nucleated Red Blood Cells % 0 %; Platelet Count 246 10^3/uL (130-400); Red Blood Cell Count 3.57 10^6/uL (4.20-5.40); Red Cell Dist. Width 13.2 % (11.5-14.5); White Blood Cell Count 13.8 10^3/uL (4.8-10.8)
[2024-05-03 11:32] LABS: INR 1.09; PT 13.9 Sec (11.4-14.6)
[2024-05-03 11:33] LABS: APTT 28.6 Sec (23.4-35.0)
[2024-05-03 11:36] LABS: ALT (SGPT) 36 U/L (0-35); AST (SGOT) 44 U/L (14-36); Albumin 4.1 g/dl (3.5-5.0); Alkaline Phosphatase 71 U/L (38-126); Blood Urea Nitrogen 30 mg/dl (7-17); Calcium 9.1 mg/dl (8.4-10.2); Carbon Dioxide 30 mmol/L (22-30); Chloride 101 mmol/L (98-107); Estimated Creatinine Clearance 44 ml/min; Glucose 146 mg/dl (70-99); Potassium 4.3 mmol/L (3.5-5.1); Sodium 142 mmol/L (135-145); Total Bilirubin 0.8 mg/dl (0.2-1.3); Total Protein 6.5 g/dl (6.3-8.2); eGFR > 60.00
--- NOTE | 2024-05-03 11:43 | HPS.HSE ---
Family Physician
-
Family Physician: Mahendra Gaffney PA-C
Chief Complaint
-
Left hip pain
History of Present Illness
83-year-old female who is presenting from home after sustaining mechanical fall at 5 PM yesterday. History was obtained from spouse and patient daughter at bedside as patient with poor recollection leading to for mechanical fall. Patient is unable
to clearly articulate events leading to fall. Patient did deny any chest pain palpitation overnight lightheadedness prior to the fall. States of left hip pain. Per patient daughter and spouse patient was sitting in recliner chair when the
customs examiner was preparing dinner in the next room. A loud sound was heard and patient was found on the floor. Patient denies hitting her head and nose no concern for head trauma. Patient pain continued to worsen overnight into this morning. Denies
any chest pain shortness of breath, nausea, lightheadedness, dizziness, neck pain. Patient denies any pain at rest. Denies any nausea vomiting abdominal pain. Denies any prior history of surgery. At baseline patient usually uses wheelchair and
does intermittently walk.
Medical History
Past Medical History
Past Medical History: Reports Other
Additional Past Medical History:
History of hemorrhagic CVA
Primary hypertension
Hyperlipidemia
Heart murmur
Hypothyroidism
Dementia unknown if with behavioral disturbances or not
Osteoarthritis
Past Surgical History: Reports None
Social History
Unable to obtain full social history at this time due to: Dementia
Personal:
Living: With Family
Family History
Family History: Not pertinent
Allergies / Home Medications
Allergies reflects when Allergies were last updated in [employer].
Home Medications with original date entered in [employer]
Allergy/Medication List:
Allergies
Allergy/AdvReac Type Severity Reaction Status Date / Time
No Known Allergies Allergy Verified 11/11/23 11:53
Home Medications
atorvastatin 20 mg tablet (Lipitor) 20 mg PO QPM High Cholesterol 11/11/23
coQ10 (ubiquinol) 100 mg capsule 100 mg PO DAILY Supplement 11/11/23
therapeutic multivitamin 1 tab PO DAILY Supplement 11/11/23
lisinopril 10 mg tablet 10 mg PO DAILY Blood pressure 30 days #30 tabs 12/04/23
amlodipine 5 mg tablet 5 mg PO DAILY 05/03/24
buspirone 5 mg tablet 2.5 mg PO DAILY 05/03/24
levothyroxine 50 mcg tablet 50 mcg PO DAILY hypothyroidism 05/03/24
Review of Systems
-
Unable to obtain full review of systems at this time due to: Dementia
Physical Exam
Vital Signs
Vital Signs
Temp Pulse Resp BP Pulse Ox
98.2 F 98 18 155/82 98
05/03/24 09:13 05/03/24 11:30 05/03/24 11:35 05/03/24 11:00 05/03/24 10:30
Physical Exam
General: Well Developed, Well Nourished and No Apparent Distress
HEENT: NormoCephalic, Moist mucous membranes and Atraumatic
Respiratory: Clear
Cardiac: S1/S2, Regular Rhythm and Murmur; No Rub
GI: Soft, Non Tender, Non Distended and Normal Bowel Sounds; No Organomegaly
Rectal: Deferred by Provider
Musculoskeletal: No Clubbing, No Cyanosis, Edema, Left Lower Extremity (Left hip swollen) and No Edema
Skin: No Rash
Neuro: Awake and Nonfocal/grossly intact
Psych: Apparent Dementia
Laboratory Results
-
05/03/24 11:05
05/03/24 11:05
Laboratory Results
PT 13.9 Sec (11.4-14.6) 05/03/24 11:05
INR 1.09 05/03/24 11:05
APTT 28.6 Sec (23.4-35.0) 05/03/24 11:05
Total Bilirubin 0.8 mg/dl (0.2-1.3) 05/03/24 11:05
AST 44 U/L (14-36) H 05/03/24 11:05
ALT 36 U/L (0-35) H 05/03/24 11:05
Alkaline Phosphatase 71 U/L (38-126) 05/03/24 11:05
Impression/Plan
-
#Mechanical fall
#Left proximal femur subtrochanteric fracture likely secondary to mechanical fall/trauma
N.p.o. for now.
Pain control
EKG with normal sinus rhythm with ventricular rate of 86. QTc of 440. T wave inversion noted.
Pt denies chest pain at rest or exertion or sob or pnd or orthopnea.Denies prior history of HF, DM, Renal problems. . Pt with RCRI 6% class II risk of cardiovascular risk factor for intermediate hip surgery. this is a medically necessary surgery and
may proceed
Postop orders per orthopedic
Monitor CBC postop.
#Leukocytosis likely due to reactive
Trend CBC for now
Afebrile
#Primary hypertension
Continue with Norvasc and lisinopril
#Hypothyroidism
Continue Synthroid
Dementia unclear if with behavioral disturbances or not
Monitor mentation closely postop.
Monitor mentation closely with pain medication
Hyperlipidemia
Continue statin
Anxiety/depression
History of hemorrhagic CVA
DVT prophylaxis SCDs prior to surgery.
Full code. Spouse and daughter bring in living well.
d/w with spouse and daughter at bedside in details
I spent a total of 78 minutes with the patient or on the floor. More than 50% of this time involved counseling and coordination of care.
--- NOTE | 2024-05-03 13:26 | CON.ORTHO ---
Consultation
-
Date/Time Consultation Requested: 05/03/2024 1000
Date/Time Consultation Performed: 05/03/2024
Requesting Provider: Doroteo Bertrand
Performing Provider: Live Rolon
Reason for Consultation: Left femur fracture
Consultation - Orthopedics
History
Orthopedic Surgery Note
CC: Left hip pain
HPI: 83-year-old female presents for evaluation of left leg injury sustained after a fall. The patient reports sustaining a fall at her home. She had pain and inability to weight-bear. 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 She ambulates with a walker at
baseline. She was brought to the emergency department where x-rays showed left proximal femur fracture. No reported other extremity pain
PMH/PSH: Hypothyroid, HTN, dementia, h/o stroke, dementia
Medications: reviewed
Family History: Family history was reviewed. Noncontributory
Social history: Nonsmoker, no illicit drugs
Exam
General appearance: Pleasant. No acute distress.
Head: Normocephalic/atraumatic
Nose: No lesions or discharge.
Skin: No obvious rashes or open wounds
Lungs: No audible wheezing, no cough or sputum production
Musculoskeletal:
LLE:
skin intact without open wounds
leg short and externally rotated
fires ehl/fhl/ta/gs
sensation intact to light touch distally s/s/sp/dp/t
Toes wwp, 1+ DP
No tenderness over bony prominences or with passive joint ROM
Imaging:
Left femur xrays show proximal femur fracture, displaced, without signs of advanced arthritis
AP:
83F with left proximal femur fracture sp fall yesterday. I discussed treatment options with the patient and her family. We discussed surgical treatment with cephalomedullary rasheeda to stabilize the fracture. We discussed the risks of surgery. Shared
decision was to proceed with left proximal femur fracture ORIF with cephalomedullary rasheeda. All questions were answered.
> 75 minutes was spent reviewing the clinical information, evaluating the patient, and formulating clinical plan.
Allergies / Home Medications
Allergy/AdvReac Type Severity Reaction Status Date / Time
No Known Allergies Allergy Verified 11/11/23 11:53
�Medication �Instructions �Recorded
atorvastatin 20 mg tablet (Lipitor) 20 mg PO QPM High Cholesterol 11/11/23
coQ10 (ubiquinol) 100 mg capsule 100 mg PO DAILY Supplement 11/11/23
therapeutic multivitamin 1 tab PO DAILY Supplement 11/11/23
lisinopril 10 mg tablet 10 mg PO DAILY Blood pressure 30 12/04/23
days #30 tabs
amlodipine 5 mg tablet 5 mg PO DAILY 05/03/24
buspirone 5 mg tablet 2.5 mg PO DAILY 05/03/24
levothyroxine 50 mcg tablet 50 mcg PO DAILY hypothyroidism 05/03/24
Vital Signs / Lab Results
Temp Pulse Resp BP Pulse Ox
98.2 F 98 18 155/82 98
05/03/24 09:13 05/03/24 11:30 05/03/24 11:35 05/03/24 11:00 05/03/24 10:30
05/03/24 11:05
05/03/24 11:05
--- NOTE | 2024-05-03 14:24 | PTCARENOTE ---
1400: Patient arrived to 2S. Full head to toe assessment completed. L leg shortened and externally rotated. Purewick in place. Patient on RA with SpO2 greater than 92%. Call bernal within reach and bed in lowest position.
--- NOTE | 2024-05-03 18:16 | OR.RPT ---
Operative Report
Operative Report
Orthopaedic Surgery Operative Note
DATE OF OPERATION: 05/03/2024
PREOPERATIVE DIAGNOSIS: Left proximal femoral shaft fracture
POSTOPERATIVE DIAGNOSIS: Same
OPERATION PERFORMED: Left proximal femoral shaft fracture open reduction and internal reduction with cephalomedulary nail
SURGEON: Tyshawn Rolon MD
AIRPLANE INSPECTOR: NA
ANESTHESIA: Spinal
COMPLICATIONS: None.
ESTIMATED BLOOD LOSS: 200 mL.
DRAINS: None
SPECIMEN: None
IMPLANTS:
[place] Gamma Cephalomeduallary nail; 380 mm by 10 mm
[place] lag screw, 85 mm.
5.0 mm distal interlocking screws x2
INDICATIONS FOR PROCEDURE
83F presented to the ED after a fall at home. Xrays showed spiral proximal femur fracture. I discussed treatment options with the patient and family including nonoperative and operative treatments. We reviewed the natural history of the problem, as
well as the risks, benefits, and alternatives of various treatment options. Shared decision was to proceed with surgical treatment. The patient and family understood the risks including, but were not limited to, bleeding, infection, failure to
relieve pain, more pain than preop, damage to blood vessels and nerves, need for reoperation, mechanical failure of the implants, wound healing problems, stiffness, instability, blood clot, pulmonary embolism, myocardial infarction, pneumonia,
arrhythmia, CVA, and . All questions were answered, and informed consent was obtained.
PROCEDURE IN DETAIL: The patient was identified in the preoperative holding area. The operative limb was identified as the operative site and marked with my initials. The patient was transferred to the operating room. Spinal anesthesia was
performed. The patient was transferred to the [facility] operative table. IV antibiotics and tranexamic acid were given. All bony prominences were well padded. The operative limb was prepped and draped in the usual sterile fashion.
We performed a surgical time-out. A 1.6mm (0.65'') fannie wire was placed in the distal femur, and traction bow was applied. This was well padded over the knee. 15lbs of skeletal traction was applied. The fracture was reduced with the aid of
flouroscopy. A small lateral incision was made, and a colinear clamp was used to aid reduction. The guide wire was placed over the medial aspect of the tip of the greater trochanter. The guide wire was advanced and checked for appropriate position
on AP and lateral. The pin guide wire was advanced to the level of the lesser trochanter. Incision was made about the wire. The opening reamer was used to open the starting point over the guide wire. A ball-tipped guide wire was advanced to the
distal femur. Length was measured to be 390mm. The femoral canal was sequentially reamed with the fracture reduced starting with a 9.5mm reamer up to 11.5mm. The nail was then inserted over the guidewire down to the appropriate depth. The guide wire
was removed. The targeting guide was assembled, and a lateral incision was made for lag screw placement. A guide pin was advanced into the femoral head. Position was checked on AP and lateral. The length was measured to be 90mm. The drill was set to
the appropriate depth, and the lag screw path was drilled over the guide wire. The lag screw was then inserted into the femoral head just distal to the subchondral bone. The locking screw was then placed into the top of the nail. Skeletal traction
was removed, and a single distal interlocking screw was placed into the static hole with perfect [place] technique. Final fluoroscopy shots were performed which showed appropriate position and length of the implant and anatomic reduction of the
fracture.
The incisions were copiously irrigated with 3L of normal saline. The deep fascial layers were closed with 0 PDS. The dermal layer closed with 2-0 PDS running. The skin was closed with 3-0 monocryl. Skin glue was applied as well as sterile dressings.
The patient was awoken from anesthesia without complication.
The patient awoke from anesthesia without difficulty. Sponge and instrument counts were correct x2 at the end of the case. I was present and participated in the entire procedure. The patient was sent to the recovery room in stable condition.
Post operative plan:
� WBAT
� PT/OT
� Pain control
� Delirium prevention
� ABX: Ancef x24 hours
� DVT: ASA 325 daily
Live Rolon MD
[2024-05-03] MEDS: TYLENOL PO (18:29)
[2024-05-03] MEDS: LIPITOR 20 MG PO (19:06)
[2024-05-03] MEDS: ASPIRIN 325 MG PO (19:06)
--- NOTE | 2024-05-03 19:10 | PTCARENOTE ---
190: Patient arrived back to 2S. Head to toe assessment from earlier in the shift remains unchanged. L hip dressing clean dry and intact. 4x4 with tegaderm on medial and lateral sides of L knee clean dry and intact. L dorsalis pulse WNL. Patient on
RA with SpO2 greater than 92%. Bed alarm in place. Call bernal within reach and bed in lowest position.
[2024-05-03] MEDS: CELEBREX 100 MG PO (20:32)
[2024-05-03] MEDS: TYLENOL 650 MG PO (20:32)
[2024-05-03] MEDS: COLACE 100 MG PO (20:32)
[2024-05-03] MEDS: SENOKOT 17.2 MG PO (20:33)
[2024-05-04] VITALS (9 sets, daily range): BP systolic 102–147; BP diastolic 55–83; PULSE 92; O2SAT 92
[2024-05-04] MEDS: ANCEF 5 IV ×2 (00:54→08:56)
[2024-05-04] MEDS: TYLENOL 650 MG PO ×5 (00:54→20:11)
[2024-05-04] MEDS: TYLENOL PO (04:38)
[2024-05-04 05:38] LABS: % Basophils 0.1 % (0-2); % Immature Granulocytes 0.5 % (0-0.5); % Lymphocytes 5.8 % (20.5-51.1); % Monocytes 8.4 % (1.7-9.3); % Neutrophils 85.2 % (42.2-75.2); Absolute Immature Granulocytes 0.1 10^3/uL (0-0.05); Absolute Lymphocytes 0.8 10^3/uL (1.2-3.4); Absolute Monocytes 1.2 10^3/uL (0.1-0.6); Absolute Neutrophils 11.8 10^3/uL (1.4-6.5); Hematocrit 27.3 % (37.0-47.0); Hemoglobin 9.3 g/dL (12.0-16.0); Mean Corp Hgb Conc. 34.1 g/dL (33.0-37.0); Mean Corpuscular Hgb 31.2 pg (27.0-31.0); Mean Corpuscular Volume 91.6 fL (81.0-99.0); Mean Platelet Volume 9.8 fL (7.4-10.4); Nucleated Red Blood Cells % 0 %; Platelet Count 200 10^3/uL (130-400); Red Blood Cell Count 2.98 10^6/uL (4.20-5.40); Red Cell Dist. Width 13.2 % (11.5-14.5); White Blood Cell Count 13.9 10^3/uL (4.8-10.8)
[2024-05-04] MEDS: SYNTHROID 50 MCG PO (05:56)
[2024-05-04 06:00] LABS: Blood Urea Nitrogen 32 mg/dl (7-17); Calcium 8.7 mg/dl (8.4-10.2); Carbon Dioxide 29 mmol/L (22-30); Chloride 103 mmol/L (98-107); Estimated Creatinine Clearance 39 ml/min; Glucose 126 mg/dl (70-99); Potassium 4.3 mmol/L (3.5-5.1); Sodium 142 mmol/L (135-145); eGFR > 60.00
[2024-05-04] MEDS: THERAGRAN 1 TABLET PO (08:56)
[2024-05-04] MEDS: CELEBREX 100 MG PO ×2 (08:57→20:07)
[2024-05-04] MEDS: NORVASC 5 MG PO (08:58)
[2024-05-04] MEDS: COLACE 100 MG PO (08:58)
[2024-05-04] MEDS: SENOKOT 17.2 MG PO (08:58)
[2024-05-04] MEDS: ZESTRIL 10 MG PO (08:59)
--- NOTE | 2024-05-04 10:30 | W.PN.ORTHO ---
Today's Communication / Plan
-
POD #1 Left Hip Gamma Nail 05/03/[address] Rolon.
- WBAT LLE for transfers and ADLs with walker for assistance.
- We appreciate the assistance of PT/OT. No open chain strengthening.
- DVT prophylaxis: Lovonox per primary team.
- Pain control as needed. Ice and elevation for pain and edema control.
- Hgb this AM 9.3. Continue to monitor and trend.
- Surgical dressings to remain in place for 2 weeks.
- Case management consult for discharge planning.
- Orthopedic surgery will continue to follow along.
Assessment
.
Distal Motor Intact: Yes
Dressing:
Mepilex dressing clean, dry, and intact. Two 4 x 4's with Tegaderm about the medial and lateral knee clean, dry, and intact.
Calf is soft and nontender to palpation.
Able to plantarflex and dorsiflex left ankle.
Assessment:
POD #1 Left Hip Gamma Nail 05/03/[address] Rolon.
Plan
.
Surgery / Date: 05/03/2024 Left Hip Gamma Nail with Dr. Rolon
DVT Prophylaxis: Lovenox
Activity:
Out of bed.
PT/OT
Discharge Information:
Appreciate CM
Subjective
.
.:
Patient resting comfortably in bedside chair. Reports that her left hip pain is controlled at this time.
Vital Signs and Labs
.
Vital Signs and Labs:
Lab Results
05/04/24 05:13
05/04/24 05:13
Temp Pulse Resp BP Pulse Ox
98.3 F 80 16 126/70 96
05/04/24 07:25 05/04/24 07:25 05/04/24 07:25 05/04/24 08:58 05/04/24 07:25
PT 13.9 Sec (11.4-14.6) 05/03/24 11:05
INR 1.09 05/03/24 11:05
--- NOTE | 2024-05-04 10:54 | W.PN.HOSP.TC ---
Today's Communication/Plan
-
Pain control
Trend cbc
PT/OT
may require SNF placement
Assessment / Plan
Assessment / Plan
General: Well Developed, Well Nourished and No Apparent Distress
HEENT: NormoCephalic, Moist mucous membranes and Atraumatic
Respiratory: Clear
Cardiac: S1/S2, Regular Rhythm and Murmur; No Rub
GI: Soft, Non Tender, Non Distended and Normal Bowel Sounds; No Organomegaly
Rectal: Deferred by Provider
Musculoskeletal: No Clubbing, No Cyanosis, Edema, Left hip swelling aquacell dressing noted.
Skin: No Rash
Neuro: Awake and Nonfocal/grossly intact
Psych: Apparent Dementia
#Mechanical fall
#Left proximal femur subtrochanteric fracture likely secondary to mechanical fall/trauma
Pain control
s/p Left Hip Gamma Nail 05/03/[address] Rolon.
Monitor CBC postop.
Blood loss in OR as stated by orthopedic
PT/OT
Lovenox for DVT ppx
# Blood loss anemia secondary to surgery
Trend hemoglobin. Transfuse as needed for hemoglobin less than 7.
#Leukocytosis likely due to reactive
Trend CBC for now
Afebrile
#Primary hypertension
Continue with Norvasc and lisinopril
BP 126/70
#Hemorrhagic stroke
Was on hep dvt ppx during that hospitalization and thus we will continue with Lovenox postop DVT prophylaxis. Patient high risk of having clot formation DVT post op. Avoiding aspirin.
#Hypothyroidism
Continue Synthroid
Dementia unclear if with behavioral disturbances or not
Monitor mentation closely postop.
Monitor mentation closely with pain medication
Hyperlipidemia
Continue statin
Anxiety/depression
History of hemorrhagic CVA
DVT prophylaxis lovenox
Full code. Spouse and daughter bring in living well.
Anticipated Discharge: > 48 hours
Subjective/Interval History
-
Date of Service: May 04, 2024
sitting in chair
states of hip soreness
Objective Data
-
Labs:
Laboratory Results
05/04/24
05:13
WBC 13.9 H
Hgb 9.3 L
Hct 27.3 L
Plt Count 200
Sodium 142
Potassium 4.3
Chloride 103
Carbon Dioxide 29
BUN 32 H
Creatinine 0.8
Glucose 126 H
Calcium 8.7
Vital Signs:
Vital Signs
Temp Pulse Resp BP Pulse Ox
98.3 F 80 16 126/70 96
05/04/24 07:25 05/04/24 07:25 05/04/24 07:25 05/04/24 08:58 05/04/24 07:25
I&O
05/03/24 05/04/24 05/05/24
06:59 06:59 06:59
Intake Total 530 / 530
Output Total 350 / 350
Balance 180 / 180
Data Reviewed
-
Total Time Spent with Patient (in minutes): 51
--- NOTE | 2024-05-04 12:11 | PTCARENOTE ---
After visiting using 4 point cane fell, witnessed by daughter by L&D doors. Found sitting holding on to knees AO. On a baby ASA daily. According to family bumped right shoulder did not hit head. Placed in w/c after assisting to
stand. Advised daughter to drop of at main entrance use motorized or w/c at entrance to get to floor for safety.
--- NOTE | 2024-05-04 14:09 | CM ---
CM met with pt at bedside. No family present.
Pt reports living with spouse in a FF set up with 0 MICHAEL.
Prior to admission ind with RW for ambulation. Ind with ADL's.
PCP is Mahendra Gaffney and [facility].
Pt reports HC and SNF history unsure of names.
Pt gave CM permission to call daughter to discuss discharge planning. CM left for daughter Yeimi [phone] requesting callback.
Anticipate SNF at co.
[2024-05-04] MEDS: LOVENOX 40 MG SC (16:27)
[2024-05-04] MEDS: LIPITOR 20 MG PO (16:27)
[2024-05-04] MEDS: COLACE PO (20:17)
[2024-05-04] MEDS: SENOKOT PO (20:17)
[2024-05-05] MEDS: TYLENOL PO (00:54)
[2024-05-05] MEDS: SYNTHROID 50 MCG PO (04:56)
[2024-05-05] MEDS: TYLENOL 650 MG PO ×6 (04:56→23:37)
[2024-05-05 07:40] VITALS: BP 118/68
[2024-05-05] MEDS: NORVASC 5 MG PO (08:37)
[2024-05-05] MEDS: THERAGRAN 1 TABLET PO (08:38)
[2024-05-05] MEDS: ZESTRIL 10 MG PO (08:38)
[2024-05-05 08:39] LABS: % Basophils 0.3 % (0-2); % Eosinophils 1.7 % (0-6); % Immature Granulocytes 0.5 % (0-0.5); % Lymphocytes 13.3 % (20.5-51.1); % Monocytes 10.6 % (1.7-9.3); % Neutrophils 73.6 % (42.2-75.2); Absolute Eosinophils 0.2 10^3/uL (0-0.7); Absolute Immature Granulocytes 0.1 10^3/uL (0-0.05); Absolute Lymphocytes 1.5 10^3/uL (1.2-3.4); Absolute Monocytes 1.2 10^3/uL (0.1-0.6); Absolute Neutrophils 8.4 10^3/uL (1.4-6.5); Hematocrit 24.4 % (37.0-47.0); Hemoglobin 8.4 g/dL (12.0-16.0); Mean Corp Hgb Conc. 34.4 g/dL (33.0-37.0); Mean Corpuscular Hgb 31.9 pg (27.0-31.0); Mean Corpuscular Volume 92.8 fL (81.0-99.0); Mean Platelet Volume 10.3 fL (7.4-10.4); Nucleated Red Blood Cells % 0 %; Platelet Count 202 10^3/uL (130-400); Red Blood Cell Count 2.63 10^6/uL (4.20-5.40); Red Cell Dist. Width 13.5 % (11.5-14.5); White Blood Cell Count 11.5 10^3/uL (4.8-10.8)
[2024-05-05] MEDS: COLACE PO ×2 (08:39→20:13)
[2024-05-05] MEDS: SENOKOT PO ×2 (08:39→20:13)
[2024-05-05 09:07] LABS: Blood Urea Nitrogen 48 mg/dl (7-17); Calcium 8.1 mg/dl (8.4-10.2); Carbon Dioxide 29 mmol/L (22-30); Chloride 103 mmol/L (98-107); Estimated Creatinine Clearance 31 ml/min; Glucose 88 mg/dl (70-99); Potassium 4.3 mmol/L (3.5-5.1); Sodium 142 mmol/L (135-145)
[2024-05-05 09:10] VITALS: BP 110/60; PULSE 96; O2SAT 98
--- NOTE | 2024-05-05 09:51 | W.PN.HOSP.TC ---
Today's Communication/Plan
-
trend cbc
await placement
Assessment / Plan
Assessment / Plan
General: Well Developed, Well Nourished and No Apparent Distress
HEENT: NormoCephalic, Moist mucous membranes and Atraumatic
Respiratory: Clear
Cardiac: S1/S2, Regular Rhythm and Murmur; No Rub
GI: Soft, Non Tender, Non Distended and Normal Bowel Sounds; No Organomegaly
Rectal: Deferred by Provider
Musculoskeletal: No Clubbing, No Cyanosis, Edema, Left hip swelling aquacell dressing noted.
Skin: No Rash
Neuro: Awake and Nonfocal/grossly intact
Psych: Apparent Dementia
#Mechanical fall
#Left proximal femur subtrochanteric fracture likely secondary to mechanical fall/trauma
Pain control
s/p Left Hip Gamma Nail 05/03/[address] Rolon.
Monitor CBC postop.
Blood loss in OR as stated by orthopedic
PT/OT
Lovenox for DVT ppx
#Acute Blood loss anemia secondary to surgery
Trend hemoglobin. Transfuse as needed for hemoglobin less than 7.
#Leukocytosis likely due to reactive
Trend CBC for now
Afebrile
#Primary hypertension
Continue with Norvasc and lisinopril
BP 126/70
#Hemorrhagic stroke
Was on hep dvt ppx during that hospitalization and thus we will continue with Lovenox postop DVT prophylaxis. Patient high risk of having clot formation DVT post op. Avoiding aspirin.
#Hypothyroidism
Continue Synthroid
Dementia unclear if with behavioral disturbances or not
Monitor mentation closely postop.
Monitor mentation closely with pain medication
Hyperlipidemia
Continue statin
Anxiety/depression
History of hemorrhagic CVA
DVT prophylaxis lovenox
Full code. Spouse and daughter bring in living well.
PT/OT-SNF. CM aware
Anticipated Discharge: 24 - 48 hours
Subjective/Interval History
-
Date of Service: May 05, 2024
states of mild left hip pain
worked with PT earlier
having BM
Objective Data
-
Labs:
Laboratory Results
05/05/24
06:53
WBC 11.5 H
Hgb 8.4 L
Hct 24.4 L
Plt Count 202
Sodium 142
Potassium 4.3
Chloride 103
Carbon Dioxide 29
BUN 48 H
Creatinine 1.0
Glucose 88
Calcium 8.1 L
Vital Signs:
Vital Signs
Temp Pulse Resp BP Pulse Ox
97.7 F 76 14 118/68 97
05/05/24 07:40 05/05/24 07:40 05/05/24 07:40 05/05/24 08:37 05/05/24 07:40
I&O
05/04/24 05/05/24 05/06/24
06:59 06:59 06:59
Intake Total 530 / 530 1140 / 1140
Output Total 350 / 350
Balance 180 / 180 1140 / 1140
--- NOTE | 2024-05-05 10:13 | W.PN.ORTHO ---
Today's Communication / Plan
-
POD #2 Left Hip Gamma Nail 05/03/[address] Rolon.
- WBAT LLE for transfers and ADLs with walker for assistance.
- We appreciate the assistance of PT/OT. No open chain strengthening.
- DVT prophylaxis: Lovonox per primary team.
- Pain control as needed. Ice and elevation for pain and edema control.
- Hgb this AM 8.4. Continue to monitor and trend.
- Surgical dressings to remain in place for 2 weeks. Outpatient follow-up in [address] Rolon's team. D/C info updated in discharge tab.
- Case management consult for discharge planning.
- Patient stable post-operatively from an orthopedic standpoint. Orthopedics will sign off for now. Please reach out with any additional questions or concerns.
Assessment
.
Distal Motor Intact: Yes
Dressing:
Mepilex dressing clean, dry, and intact. Two 4 x 4's with Tegaderm about the medial and lateral knee clean, dry, and intact.
Calf is soft and nontender to palpation.
Able to plantarflex and dorsiflex left ankle.
Assessment:
POD #2 Left Hip Gamma Nail 05/03/[address] Rolon.
Plan
.
Surgery / Date: 05/03/2024 Left Hip Gamma Nail with Dr. Rolon
DVT Prophylaxis: Lovenox
Activity:
Out of bed.
PT/OT
Discharge Information:
Appreciate CM. Anticipating SNF at D/C.
Subjective
.
.:
Patient resting comfortably in bedside chair. Denies any significant pain about left hip. Overall, reports that she is doing well. Denies any other new complaints.
Vital Signs and Labs
.
Vital Signs and Labs:
Lab Results
05/05/24 06:53
05/05/24 06:53
Temp Pulse Resp BP Pulse Ox
97.7 F 76 14 118/68 97
05/05/24 07:40 05/05/24 07:40 05/05/24 07:40 05/05/24 08:37 05/05/24 07:40
PT 13.9 Sec (11.4-14.6) 05/03/24 11:05
INR 1.09 05/03/24 11:05
[2024-05-05 11:14] VITALS: BP 110/60; PULSE 96; O2SAT 98
[2024-05-05 15:20] VITALS: BP 102/55
[2024-05-05] MEDS: LOVENOX 40 MG SC (18:00)
[2024-05-05] MEDS: LIPITOR 20 MG PO (18:00)
[2024-05-05 23:10] VITALS: BP 108/62
[2024-05-06] MEDS: SYNTHROID 50 MCG PO (04:44)
[2024-05-06] MEDS: TYLENOL 650 MG PO ×5 (04:44→23:19)
[2024-05-06 07:07] LABS: % Basophils 0.6 % (0-2); % Eosinophils 4.7 % (0-6); % Immature Granulocytes 0.4 % (0-0.5); % Lymphocytes 18.8 % (20.5-51.1); % Monocytes 9.9 % (1.7-9.3); % Neutrophils 65.6 % (42.2-75.2); Absolute Basophils 0.1 10^3/uL (0-0.2); Absolute Eosinophils 0.4 10^3/uL (0-0.7); Absolute Lymphocytes 1.7 10^3/uL (1.2-3.4); Absolute Monocytes 0.9 10^3/uL (0.1-0.6); Absolute Neutrophils 5.9 10^3/uL (1.4-6.5); Hematocrit 23.2 % (37.0-47.0); Hemoglobin 7.9 g/dL (12.0-16.0); Mean Corp Hgb Conc. 34.1 g/dL (33.0-37.0); Mean Corpuscular Hgb 30.4 pg (27.0-31.0); Mean Corpuscular Volume 89.2 fL (81.0-99.0); Mean Platelet Volume 10.1 fL (7.4-10.4); Nucleated Red Blood Cells % 0 %; Platelet Count 229 10^3/uL (130-400); Red Cell Dist. Width 13.5 % (11.5-14.5); White Blood Cell Count 9.1 10^3/uL (4.8-10.8)
[2024-05-06 07:21] LABS: Blood Urea Nitrogen 35 mg/dl (7-17); Calcium 8.2 mg/dl (8.4-10.2); Carbon Dioxide 28 mmol/L (22-30); Chloride 104 mmol/L (98-107); Estimated Creatinine Clearance 44 ml/min; Glucose 90 mg/dl (70-99); Potassium 4.1 mmol/L (3.5-5.1); Sodium 141 mmol/L (135-145); eGFR > 60.00
[2024-05-06 07:25] VITALS: BP 117/60
[2024-05-06] MEDS: NORVASC 5 MG PO (08:09)
[2024-05-06] MEDS: ZESTRIL 10 MG PO (08:10)
[2024-05-06] MEDS: THERAGRAN 1 TABLET PO (08:10)
[2024-05-06] MEDS: COLACE PO (08:10)
[2024-05-06] MEDS: SENOKOT PO ×2 (08:10→20:53)
[2024-05-06 09:25] LABS: Iron 45 ug/dl (37-170)
[2024-05-06 09:34] LABS: Percent Saturation 19 % (20-50); Total Iron Binding Capacity 235 ug/dl (265-497)
--- NOTE | 2024-05-06 09:38 | CM ---
Addendum entered by Raissa Devries RN 05/06/24 14:20:
Auth received for 05/07-05/13; NRD 05/13; Fax clinicals to: [phone]; Auth # [id number]
Medical necessity and transport forms on chart.
Call report to: [phone]
Fax report to: [phone]
Addendum entered by Raissa Devries RN 05/06/24 11:30:
IMM reviewed and placed on chart. [facility] and [facility] have offered a bed. Per daughter, first choice would be [facility], but asked that CM reach out to the patient's spouse. Voice message left on cell #, home number not in working
order. Awaiting call back for decision.
Original Note:
Reviewed the chart notes and spoke with the patient's daughter via telephone. Discussed SNF/rehabs. Patient's daughter agreeable to referrals being sent to area facilities and to include [facility]. Referrals sent. CM continues to be available
to patient/family and is monitoring medical plan for needs at discharge.
Plan: Discharge to SNF/rehab once bed found and precert obtained.
--- NOTE | 2024-05-06 11:58 | W.PN.HOSP.TC ---
Today's Communication/Plan
-
Monitor vital signs see plan
Start IV iron
Monitor hemoglobin
Pain control
PT/OT
Discharge planning
Assessment / Plan
Assessment / Plan
General: Well Developed, Well Nourished and No Apparent Distress
HEENT: NormoCephalic, Moist mucous membranes and Atraumatic
Respiratory: Clear
Cardiac: S1/S2, Regular Rhythm and Murmur; No Rub
GI: Soft, Non Tender, Non Distended and Normal Bowel Sounds
Musculoskeletal: No Clubbing, No Cyanosis, Edema, Left hip swelling aquacell dressing noted.
Neuro: Awake and Nonfocal/grossly intact
Psych: Apparent Dementia
#Mechanical fall
#Left proximal femur subtrochanteric fracture likely secondary to mechanical fall/trauma
Pain control
s/p Left Hip Gamma Nail 05/03/[address] Rolon.
Monitor CBC postop. 7.9 today; low iron on labs; start IV iron for now
likely 2/2 Blood loss in OR as stated by orthopedic
PT/OT
Lovenox for DVT ppx
#Acute Blood loss anemia secondary to surgery
Trend hemoglobin. Transfuse as needed for hemoglobin less than 7.
#Leukocytosis likely due to reactive
resolved
Afebrile
#Primary hypertension
Continue with Norvasc and lisinopril
#Hemorrhagic stroke
Was on hep dvt ppx during that hospitalization and thus we will continue with Lovenox postop DVT prophylaxis. Patient high risk of having clot formation DVT post op. Avoiding aspirin.
#Hypothyroidism
Continue Synthroid
Dementia unclear if with behavioral disturbances or not
Monitor mentation closely postop.
Monitor mentation closely with pain medication
Hyperlipidemia
Continue statin
Anxiety/depression
History of hemorrhagic CVA
DVT prophylaxis lovenox
Full code. Spouse and daughter bring in living well.
PT/OT-SNF. CM aware
Anticipated Discharge: Within 24 hours
Subjective/Interval History
-
Date of Service: May 06, 2024
Has some pain
Objective Data
-
Labs:
Laboratory Results
05/06/24
05:18
WBC 9.1
Hgb 7.9 L
Hct 23.2 L
Plt Count 229
Sodium 141
Potassium 4.1
Chloride 104
Carbon Dioxide 28
BUN 35 H
Creatinine 0.7
Glucose 90
Calcium 8.2 L
Vital Signs:
Vital Signs
Temp Pulse Resp BP Pulse Ox
97.5 F 76 18 117/60 97
05/06/24 07:25 05/06/24 07:25 05/06/24 07:25 05/06/24 08:10 05/06/24 07:25
I&O
05/05/24 05/06/24 05/07/24
06:59 06:59 06:59
Intake Total 1140 / 1140 1340 / 1340
Balance 1140 / 1140 1340 / 1340
[2024-05-06 12:19] LABS: Vitamin B12 461 pg/ml (239-931)
[2024-05-06] MEDS: FERRLECIT 110 MG IV (13:46)
[2024-05-06 14:51] VITALS: BP 117/68; PULSE 92; O2SAT 96
[2024-05-06 15:25] VITALS: BP 118/64
[2024-05-06] MEDS: LOVENOX 40 MG SC (18:05)
[2024-05-06] MEDS: LIPITOR 20 MG PO (18:06)
[2024-05-06] MEDS: TYLENOL PO (18:07)
[2024-05-06] MEDS: COLACE 100 MG PO (20:53)
[2024-05-06 23:03] VITALS: BP 152/77
[2024-05-07] MEDS: TYLENOL 650 MG PO (03:08)
[2024-05-07] MEDS: SYNTHROID 50 MCG PO (05:14)
[2024-05-07 06:50] LABS: % Basophils 0.6 % (0-2); % Eosinophils 5.5 % (0-6); % Immature Granulocytes 0.6 % (0-0.5); % Lymphocytes 21.6 % (20.5-51.1); % Monocytes 9.6 % (1.7-9.3); % Neutrophils 62.1 % (42.2-75.2); Absolute Basophils 0.1 10^3/uL (0-0.2); Absolute Eosinophils 0.5 10^3/uL (0-0.7); Absolute Immature Granulocytes 0.1 10^3/uL (0-0.05); Absolute Lymphocytes 1.8 10^3/uL (1.2-3.4); Absolute Monocytes 0.8 10^3/uL (0.1-0.6); Absolute Neutrophils 5.1 10^3/uL (1.4-6.5); Hematocrit 23.8 % (37.0-47.0); Hemoglobin 8.3 g/dL (12.0-16.0); Mean Corp Hgb Conc. 34.9 g/dL (33.0-37.0); Mean Corpuscular Hgb 31.7 pg (27.0-31.0); Mean Corpuscular Volume 90.8 fL (81.0-99.0); Mean Platelet Volume 10.2 fL (7.4-10.4); Nucleated Red Blood Cells % 0 %; Platelet Count 249 10^3/uL (130-400); Red Blood Cell Count 2.62 10^6/uL (4.20-5.40); Red Cell Dist. Width 13.3 % (11.5-14.5); White Blood Cell Count 8.2 10^3/uL (4.8-10.8)
[2024-05-07 07:21] LABS: Blood Urea Nitrogen 23 mg/dl (7-17); Calcium 8.3 mg/dl (8.4-10.2); Carbon Dioxide 29 mmol/L (22-30); Chloride 104 mmol/L (98-107); Estimated Creatinine Clearance 52 ml/min; Glucose 87 mg/dl (70-99); Potassium 4.6 mmol/L (3.5-5.1); Sodium 141 mmol/L (135-145); eGFR > 60.00
[2024-05-07 07:25] VITALS: BP 115/67
[2024-05-07] MEDS: ZESTRIL 10 MG PO (08:45)
[2024-05-07] MEDS: THERAGRAN 1 TABLET PO (08:45)
[2024-05-07] MEDS: NORVASC 5 MG PO (08:45)
[2024-05-07] MEDS: TYLENOL PO ×2 (08:45→12:32)
[2024-05-07] MEDS: SENOKOT PO (08:46)
[2024-05-07] MEDS: COLACE 100 MG PO (08:46)
[2024-05-07 09:07] LABS: Hepatitis C Antibody Negative (Negative)
[2024-05-07 10:49] LABS: COVID-19 Antigen Negative (Negative)
--- NOTE | 2024-05-07 11:23 | W.PN.HOSP.TC ---
Today's Communication/Plan
-
ready for d/c
Assessment / Plan
Assessment / Plan
83yo F with PMHx of hypothyroidism, HLD, HTN came after she fell, while tripped, found L proximal femoral Fx, s/p L hip gamma nail on 05/03/24. Had uneventful recovery and recommended for rehab by PT/OT. Medically stable for d/c as no further
concern for hemoglobin drop or ongoing bleeding on the site of the surgery - no bruising seen.
A/P:
#fall w/o LOC
#Left proximal femur subtrochanteric fracture 2/ trauma
Pain control
s/p Left Hip Gamma Nail 05/03/[address] Rolon.
#Acute Blood loss anemia secondary to surgery on anemia of chronic disease
follow CBC - remained stable
#Leukocytosis likely due to reactive
resolved
Afebrile
#Hx of Hemorrhagic stroke
#Essential hypertension
#Hypothyroidism
#Hyperlipidemia
#Anxiety/depression
Was on hep dvt ppx during that hospitalization and thus we will continue with Lovenox postop DVT prophylaxis. Patient high risk of having clot formation DVT post op. Avoiding aspirin.
Continue home meds
#Dementia unclear if with behavioral disturbances or not
Monitor mentation closely postop.
Monitor mentation closely with pain medication
DVT prophylaxis lovenox
Full code
I have spent at least 38min reviewing chart, test results and providing direct patient care
Anticipated Discharge: Within 24 hours
Subjective/Interval History
-
Date of Service: May 07, 2024
Objective Data
-
Labs:
Laboratory Results
05/07/24
05:11
WBC 8.2
Hgb 8.3 L
Hct 23.8 L
Plt Count 249
Sodium 141
Potassium 4.6
Chloride 104
Carbon Dioxide 29
BUN 23 H
Creatinine 0.6
Glucose 87
Calcium 8.3 L
Vital Signs:
Vital Signs
Temp Pulse Resp BP Pulse Ox
97.6 F 77 18 115/67 97
05/07/24 07:25 05/07/24 08:45 05/07/24 07:25 05/07/24 08:45 05/07/24 07:25
I&O
05/06/24 05/07/24 05/08/24
06:59 06:59 06:59
Intake Total 1340 / 1340 840 / 840
Balance 1340 / 1340 840 / 840
Review of Systems
-
History Source: Patient
All other systems: Reviewed and negative
Physical Exam
-
General: No Apparent Distress
HEENT: Normocephalic
Respiratory: Clear to Auscultation
Cardiac: Regular Rhythm
GI: Soft, Nontender and Nondistended
Musculoskeletal: No Clubbing, No Cyanosis and No Edema
Neuro: Awake, Alert, Oriented and AO x 3
Psych: Calm
--- NOTE | 2024-05-07 11:28 | W.DCSUMMARY ---
Addendum entered and electronically signed by Galileo Daurte MD 05/07/24 14:43:
as per previous discussion between hospitalist and ortho -Lovenox preferred with PMHX of ICH
Addendum entered and electronically signed by Galileo Duarte MD 05/07/24 14:37:
As per Ortho note - ASA 325mg daily for DVT ppx - added
Original Note:
Discharge Summary
Discharge Data
Date of Admission: 05/03/24
Date of Discharge: 05/07/24
-
Pending Results: No
Hospital Course
83yo F with PMHx of hypothyroidism, HLD, HTN came after she fell, while tripped, found L proximal femoral Fx, s/p L hip gamma nail on 05/03/24. Had uneventful recovery and recommended for rehab by PT/OT. Medically stable for d/c as no further
concern for hemoglobin drop or ongoing bleeding on the site of the surgery - no bruising seen.
I have spent at least 37min preparing patient d/c
Patient was managed for:
#fall w/o LOC
#Left proximal femur subtrochanteric fracture 2/2 trauma
#Acute Blood loss anemia secondary to surgery on anemia of chronic disease
#Leukocytosis likely due to reactive
#Hx of Hemorrhagic stroke
#Essential hypertension
#Hypothyroidism
#Hyperlipidemia
#Anxiety/depression
#Dementia unclear if with behavioral disturbances or not
Discharge Plan
-
Patient Disposition: Assisted/SNF
Discharge Diagnosis/Procedures: L hip Fx
Diet: Low Sodium
Activity: As tolerated
Additional Activity: WBAT LLE for transfers and ADLs with walker for assistance
Driving Restrictions: As prior to admission
Other Services: PT and OT
Referrals:
Mahendra Gaffney PA-C [Family Provider] -
Tyshawn Rolon MD [Active] - in two to four weeks
Prescriptions:
Continued
atorvastatin [Lipitor] 20 mg Tablet
20 mg PO QPM
therapeutic multivitamin Tablet
1 tab PO DAILY
coQ10 (ubiquinol) 100 mg Capsule
100 mg PO DAILY
buspirone 5 mg Tablet
2.5 mg PO DAILY
amlodipine 5 mg Tablet
5 mg PO DAILY
levothyroxine 50 mcg tablet
50 mcg PO DAILY
lisinopril 10 mg Tablet
10 mg PO DAILY 30 Days Qty: 30 0RF
Discharge Orders:
Discharge Patient (As Directed); Ordered 05/07/24
Ordered By: Galileo Duarte
Discharge Date and Time
Print Language: [place]
--- NOTE | 2024-05-07 11:31 | CM ---
Reviewed the chart notes. Patient and spouse agreeable to [facility]. Auth received yesterday for today. Covid Neg screen sent to [facility] via [facility].
Plan: Discharge to [facility] today.
Call report to: [phone]
Fax report to: [phone]
Medical necessity and transport forms on chart.
[2024-05-07] MEDS: FERRLECIT 110 MG IV (14:14)
[2024-05-07 14:29] VITALS: BP 144/80
[2024-05-07 14:48] LABS: Transferrin 184 mg/dL (200-360)
== END 2024-05-07 15:08 | DRG 481 ==
LOC: 2 SOUTH 12:04
PROVIDERS: Internal Medicine; Physician Assistant; ADMITTING PHYSICIAN Hospitalist; ATTENDING PHYSICIAN Internal Medicine; CONSULT PHYSICIAN Orthopaedic Surgery; EMERGENCY PHYSICIAN Emergency Medicine; FAMILY PHYSICIAN Physician Assistant Medical
PROC: 0QS906Z Reposition Left Femoral Shaft with Intramedullary Internal Fixation Device, Open Approach (ICD-10-PCS; 2024-05-03)
DX: S72.22XA Displaced subtrochanteric fracture of left femur, initial encounter for closed fracture (principal); D62 Acute posthemorrhagic anemia; F03.93 Unspecified dementia, unspecified severity, with mood disturbance; F03.94 Unspecified dementia, unspecified severity, with anxiety; D63.8 Anemia in other chronic diseases classified elsewhere; E03.9 Hypothyroidism, unspecified; F32.A Depression, unspecified; I10 Essential (primary) hypertension; D72.829 Elevated white blood cell count, unspecified; E78.00 Pure hypercholesterolemia, unspecified; M19.90 Unspecified osteoarthritis, unspecified site; R01.1 Cardiac murmur, unspecified; W07.XXXA Fall from chair, initial encounter; Y92.009 Unspecified place in unspecified non-institutional (private) residence as the place of occurrence of the external cause; Z79.890 Hormone replacement therapy; Z79.899 Other long term (current) drug therapy; Z86.73 Personal history of transient ischemic attack (TIA), and cerebral infarction without residual deficits
CPT/HCPCS: 73502; 73552; 76000; 80048; 80053; 82607; 82728; 82746; 83540; 83550; 84466; 85025; 85610; 85730; 86803; 86850; 86900; 86901; 87811; 93005; 97163; 97167; 97530; 97535; 99285; C1713; C1769; J2916